=== PATIENT | female | born 1950 | race Caucasian/White ===

== ENCOUNTER 2018-04-14 15:17 | Inpatient (IN) | payer MEDICARE ==
[2018-04-14 15:38] LABS: #Eosinphils 0.1 thou/uL (0.0-0.7); #Lymphocytes 1.5 thou/uL (1.20-3.40); #Monocytes 0.5 thou/uL (0.11-0.59); #Neutrophils 5.2 thou/uL (1.40-6.50); %Basophils 0.3 % (0.0-1.0); %Eosinophils 0.9 % (0.0-10.0); %Monocytes 6.2 % (0.0-10.0); %Neutrophils 71.7 % (42.0-75.0); Hemoglobin 14.9 g/dL (12.0-16.0); Mean Corpuscular HGB CONC 34.5 g/dL (32.0-36.0); Mean Corpuscular Hemoglobin 28.6 pg (27.0-31.0); Mean Corpuscular Volume 82.8 fL (78.0-98.0); Mean Platelet Volume 6.7 fL (7.4-10.4); Platelet Count 169 thou/uL (130-400); RBC Distribution Width 12.6 % (11.5-14.5); Red Blood Cell (RBC) Count 5.23 mill/uL (4.20-5.40); White Blood Cell (WBC) Count 7.3 thou/uL (4.8-10.8)
--- NOTE | 2018-04-14 15:48 | RAD ---
AP VIEW OF THE CHEST: 04/14/18 INDICATION: Mid sternal chest pain. COMPARISON: Prior exam dated 11/01/10. FINDINGS: There is now moderate cardiomegaly with mild to moderate pulmonary vascular congestion. No pleural ef fusion, pneumothorax is evident. No acute osseous abnormality is evident. IMPRESSION: Worsening moderate cardiomegaly with moderate pulmonary vascular congestion. Recommend correlation f or CHF. POS: [facility]
[2018-04-14 16:00] LABS: ALT (SGPT) 11 U/L (8-55); AST (SGOT) 12 U/L (5-34); Albumin 4.4 g/dL (3.4-4.8); Alkaline Phosphatase 122 U/L (40-150); Anion Gap 15 mmol/L (10-20); BUN (Urea Nitrogen) 16 mg/dL (9.8-20.1); Bilirubin, Total 0.6 mg/dL (0.2-1.2); CK (CPK) 44 U/L (29-168); Calc. Creatinine Clearance 0 mL/min (70-130); Calcium 9.7 mg/dL (7.8-10.44); Carbon Dioxide 25 mmol/L (23-31); Chloride 103 mmol/L (98-107); Estimated GFR-MDRD 55; Globulin 2.8 g/dL (2.4-3.5); Glucose 346 mg/dL (80-115); Lipase 25 U/L (8-78); Potassium 3.7 mmol/L (3.5-5.1); Protein, Total 7.2 g/dL (6.0-8.3); Sodium 139 mmol/L (136-145)
[2018-04-14 16:04] LABS: CKMB 0.8 ng/mL (0-6.6); Troponin I Less than 0.010 ng/mL (< 0.028)
[2018-04-14] MEDS ORDERED: Nitroglycerin 2% Ointment 1 INCH/1 GM Packet ONE (16:53)
--- NOTE | 2018-04-14 17:38 | PDOC.FPRHP ---
- History of Present Illness Chief Complaint: Chest Pressure History of Present Illness: 67 yo W F with hx DM, HTN, HLD, hypothyroidism presents with chest pressure beginning last night while she was sitting watching TV, lasting 1 hr. She went to sleep, woke up at 6 AM to go the bathroom and had pressure again, she took symbicort and the pressure resolved in about 5 minutes. She went to work and noticed while she would sit she would get the pressure. Exercise/walking did not make the pressure worse. Pressure/pain does not radiate to back, neck, or arm. After work, she noticed the pressure. She decided to go to urgent care, where an EKG was taken which showed Left axis deviation, sinus rhythm. She received 4 aspirin and was sent here. She reports having a stress test with her PCP Dr. Cheema 2 yrs prior that was normal. She says she had similar chest pressure 6 mos ago that went away on its own. She also recently had a coworker suddenly on March, and has been preparing/working on services for her friend for the past few days, including today. She says that she does not think she is usually anxious (she describes herself as laid back), but also admits to feeling pretty anxious because of her friend. Upon admission to the ED, her BP was 184/62. After being admitted, her systolic pressure jumped up to 244 and she was given hydralazine and labetolol. - Allergies/Adverse Reactions Allergies Allergy/AdvReac Type Severity Reaction Status Date / Time No Known Allergies Allergy Verified 04/14/18 19:25 - History PMHx: DM, HTN, HLD, thyroid disease PSHx: Hemorrhoidectomy, hysterectomy, appendectomy, tonsillectomy FHx: adopted, unknown Social: No T/D/A. with 2 grown children. No ill contacts. - Review of Systems General: denies: fever/chills, weight/appetite/sleep changes, night sweats, fatigue Eyes: denies: vision changes Respiratory: reports: shortness of breath. denies: cough, congestion Cardiovascular: reports: chest pain. denies: palpitation, edema Gastrointestinal: reports: diarrhea, constipation (alternating diarrhea and constipation, chronic). denies: nausea, vomiting, abdominal pain, GI bleeding Genitourinary: denies: incontinence, dysuria Skin: denies: rashes Neurological: denies: numbness, syncope, weakness Psychological: denies: anxiety, depression - Vital signs BP: [] HR: [] RR: [] Tmax: [] Pox: []% on [] Wt: [] - Physical Exam Constitutional: awake, alert and oriented, well developed, other (Seems anxious on Exam) HEENT: normocephalic and atraumatic, PERRLA, EOMI, grossly normal hearing, MMM, oropharynx clear Neck: supple, no LAD Chest: no-tender to palpation Heart: RRR, normal S1/S2, no murmurs/rubs/gallops, pulses present Lungs: CTAB, no respiratory distress, good air movement Abdomen: soft, non-tender, bowel sounds present Skin: no rash/lesions, good turgor, capillary refill <2 seconds Psychiatric: normal mood and affect, good judgment and insight, intact recent and remote memory FMR H&P: Results - Labs Result Diagrams: 04/14/18 15:28 04/14/18 15:28 Lab results: WBC 7.3 thou/uL (4.8-10.8) 04/14/18 15: Hgb 14.9 g/dL (12.0-16.0) 04/14/18 15: Hct 43.3 % (36.0-47.0) 04/14/18 15: MCV 82.8 fL (78.0-98.0) 04/14/18 15:28 Plt Count 169 thou/uL (130-400) 04/14/18 15: Neutrophils % 71.7 % (42.0-75.0) 04/14/18 15:28 Sodium 139 mmol/L (136-145) 04/14/18 15:28 Potassium 3.7 mmol/L (3.5-5.1) 04/14/18 15: Chloride 103 mmol/L (98-107) 04/14/18 15: Carbon Dioxide 25 mmol/L (23-31) 04/14/18 15:28 BUN 16 mg/dL (9.8-20.1) 04/14/18 15: Creatinine 1.00 mg/dL (0.6-1.1) 04/14/18 15:28 Glucose 346 mg/dL (80-115) H 04/14/18 15:28 Calcium 9.7 mg/dL (7.8-10.44) 04/14/18 15:28 Total Bilirubin 0.6 mg/dL (0.2-1.2) 04/14/18 15:28 AST 12 U/L (5-34) 04/14/18 15:28 ALT 11 U/L (8-55) 04/14/18 15:28 Alkaline Phosphatase 122 U/L (40-150) 04/14/18 15:28 Creatine Kinase 44 U/L (29-168) 04/14/18 15:28 CK-MB (CK-2) 0.8 ng/mL (0-6.6) 04/14/18 15:28 B-Natriuretic Peptide 65.4 pg/mL (0-100) 04/14/18 15:28 Serum Total Protein 7.2 g/dL (6.0-8.3) 04/14/18 15:28 Albumin 4.4 g/dL (3.4-4.8) 04/14/18 15:28 Lipase 25 U/L (8-78) 04/14/18 15:28 - EKG Interpretation EKG: Left axis deviation, NSR FMR H&P: A/P - Problem List (1) T2DM (type 2 diabetes mellitus) Current Visit: Yes Status: Chronic (2) HTN (hypertension) Current Visit: Yes Status: Chronic Code(s): I10 - ESSENTIAL (PRIMARY) HYPERTENSION (3) HLD (hyperlipidemia) Current Visit: Yes Status: Chronic Code(s): E78.5 - HYPERLIPIDEMIA, UNSPECIFIED (4) Hypothyroid Current Visit: Yes Status: Chronic Code(s): E03.9 - HYPOTHYROIDISM, UNSPECIFIED (5) Hypertensive urgency Current Visit: Yes Status: Acute Code(s): I16.0 - HYPERTENSIVE URGENCY (6) Chest pressure Current Visit: Yes Status: Acute Code(s): R07.89 - OTHER CHEST PAIN - Plan Atypical Chest pain/pressure, likely 2/2 to hyperthyroid vs HTN urgency vs adrenal etiology: Substernal chest pressure, non-exertional. Possibly improved with nitro. Trop negx1 and CKMB neg. EKG shows LAD, otherwise normal. I do not think that her chest pain is from cardiac etiology at this time. Admit to tele obs, control her pressures overnight. Stress test in the AM. -Continue home aspirin 81 mg HTN Urgency: Systolic up to 244 -HTN seems to correlate with her chest pressure. Control pressure with labetolol and hydralazine PRN. Restart home medications after being med- reconciled. -continue home lisinopril HLD: -Continue home niacin. -Continue home Zocor T2DM: -Glucose in 300s upon entrance. -Continue Actos, Lantus, Onglyza, Amaryl Hypothyroid: -TSH -Hold home synthroid until TSH results Code status: full code FMR H&P: Upper Level - Pertinent history 67 yo female here for chest pressure. PMH of HTN, HLD, DMII, hypothyroid, obesity. She reports having mid-sternal chest pressure this morning that woke her up from sleep, lasted about an hour and resolved on its own. No radiation or neck/arm numbness. She woke again from sleep around 06:00 with the same chest pressure which resolved with symbicort. At work she did not have any chest pressure while actively walking, and it only returned after sitting. She is a patient of Dr. Cheema, had a negative stress test in 2016. Reports she does not have asthma or COPD, but will sometimes get symbicort for respiratory symptoms such as URI or seasonal allergies. Endorses occasional diarrhea/ constipation that is not associated with current episodes. Denies VIZCARRA, SOB, N/V. - Pertinent findings Gen: NAD Resp: CTAb CARD: RRR, normal S1, S2 Abd: NBS x 4, NT, ND Ext: pulses symmetric bilateral, no edema Trpos: <0.010 x 1 BNP: 65 CXR: worsening moderate cardiomegaly with moderate pulmonary vascular congestion EKG: no ST segment changes - Plan Date/Time: 04/14/18 4099 Jose Nieto DO, have evaluated this patient and agree with findings/plan as outlined by campus recruiting internship resident. Pertinent changes/additions are listed here. Atypical chest pain r/o ACS -HEART score 4 due to age and comorbities - will do NM stress test tomorrow morning; NPO at midnight, hold B blockers HTN -restart home meds -labetolol, hydralazine prn DMII -continue home meds -monitor for the need for mild SSI Hypothyroid -check TSH -restart home meds Anxiety -will screen for anxiety tomorrow Attending Addendum - Attending Addendum Date/Time: 04/14/181834 I personally evaluated the patient in the Emergency Department and discussed the management with Dr. Perri Vo just prior to admission to the floor. I agree with the History, Examination, Assessment and Plan documented above with any addition or exceptions noted below. DDD: 67 y/o female presented to urgent care this afternoon after having several episodes of mid sternal chest pressure the first of which was last night and only lasted 5 minutes. Today at urgent care she was given 4 aspirin and sent to the ED to be evaluated. She denies actual pain, numbness tingling, dyspnea, nausea or radiation of the pressure into the jaw, neck, back , arms or abdomen. She also denies heartburn or indigestion except on rare occasions. 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 Note she was initially hypertensive in the E.D. brought down with meds. For the rest of the PMH, SH, FH (she's adopted), and ROS see Dr. Perri Vo's note. Exam: Alert, pleasant, cooperative moddertely obese female in the E.D. in NAD. HEENT: WNL Neck: supple no adenopathy or thyromegaly Lungs: CTA, Cor: RRR, no murmur. Abdomen: soft protruberant, non-tender, no organomegaly or masses. Ext: No cyanosis, clubbing or pallor. 1+ edema bilat. lower legs (she states is normal). A: Atypical Chest pressure, but with risk factors for CAD. Possibly related to elevated episodes or MSK chest discomfort from recent increased lifting. HTN urgency resolved HLD DM-2 Hypothyroidism. Obesity P: Telemetry, Nuclear stress tesing in [facility]
[2018-04-14] MEDS ORDERED: Calcium Carbonate 500 MG ChewTAB PO PRN (17:45)
[2018-04-14] MEDS ORDERED: Labetalol HCl 100 MG/20 ML VIAL SLOW IVP PRN (18:25)
[2018-04-14] MEDS ORDERED: Enoxaparin Sodium 40 MG/0.4 ML SYRINGE SC SCH (18:30)
[2018-04-14] MEDS: hydrALAZINE 20 MG/ML VIAL SLOW IVP PRN (18:42)
[2018-04-14 18:48] VITALS: BMI 39.2
[2018-04-14] MEDS ORDERED: Lidocaine 2% Viscous Solution 20 ML, Aluminum & Magnesium Hydroxide 30 ML, Donnatal Eli... SSW SCH (21:45)
[2018-04-14 22:04] LABS: Troponin I Less than 0.010 ng/mL (< 0.028)
[2018-04-14] MEDS: Lorazepam 2 MG/ML VIAL SLOW IVP PRN (22:20)
[2018-04-15 01:20] LABS: Troponin I Less than 0.010 ng/mL (< 0.028)
[2018-04-15] MEDS ORDERED: Lorazepam 2 MG/ML VIAL SLOW IVP SCH (02:29)
--- NOTE | 2018-04-15 05:43 | PDOC.FM ---
- Subjective Subjective: 67 WF here for chest pain r/o. Did not sleep well overnight due to uncomfortable bed. Received Ativan 1x last night which helped relieve her chest pain. Feels well this morning, denied pain. NPO for Stress test this AM. - Objective Vital Signs & Weight: Vital Signs (12 hours) Temp Pulse Resp BP BP BP Pulse Ox 04/15/18 03:40 98.1 F 81 16 148/65 H 94 L 04/14/18 21:35 94 L 04/14/18 21:28 149/66 H 04/14/18 20:09 74 182/81 H 04/14/18 20:00 98.6 F 74 18 04/14/18 19:30 172/75 H 04/14/18 19:18 75 189/79 H 04/14/18 18:42 244/105 H 04/14/18 17:49 98.6 F 72 18 224/104 H Weight Weight 103.691 kg Result Diagrams: 04/14/18 15:28 04/14/18 15:28 <Estefani Vo - Last Filed: 04/15/18 07:35> - Objective Vital Signs & Weight: Vital Signs (12 hours) Temp Pulse Resp BP BP Pulse Ox 04/15/18 13:18 97.4 F L 86 16 187/88 H 96 04/15/18 08:00 97.9 F 75 16 04/15/18 07:33 97.9 F 75 16 147/63 H 93 L 04/15/18 03:40 98.1 F 81 16 148/65 H 94 L Weight Weight 103.691 kg I&O: 04/14/18 04/15/18 04/16/18 06:59 06:59 06:59 Intake Total 240 Balance 240 Result Diagrams: 04/14/18 15:28 04/14/18 15:28 <Kedar Couch - Last Filed: 04/15/18 15:27> Phys Exam - Physical Examination Constitutional: NAD HEENT: moist MMs Neck: supple (, thyroid normal size and NTTP, normal consistency) Respiratory: no wheezing, no rales, no rhonchi, clear to auscultation bilateral Cardiovascular: RRR 2/6 systolic murmur Gastrointestinal: soft, non-tender Musculoskeletal: no edema, pulses present Neurological: moves all 4 limbs Psychiatric: normal affect, A&O x 3 Skin: normal turgor, cap refill <2 seconds <Estefani Vo - Last Filed: 04/15/18 07:35> Dx/Plan (1) T2DM (type 2 diabetes mellitus) Status: Chronic (2) HTN (hypertension) Code(s): I10 - ESSENTIAL (PRIMARY) HYPERTENSION Status: Chronic (3) HLD (hyperlipidemia) Code(s): E78.5 - HYPERLIPIDEMIA, UNSPECIFIED Status: Chronic (4) Hypothyroid Code(s): E03.9 - HYPOTHYROIDISM, UNSPECIFIED Status: Chronic (5) Hypertensive urgency Code(s): I16.0 - HYPERTENSIVE URGENCY Status: Acute (6) Chest pressure Code(s): R07.89 - OTHER CHEST PAIN Status: Acute - Plan Plan: Atypical Chest pain/pressure, likely 2/2 to hyperthyroid vs HTN urgency vs adrenal etiology: Substernal chest pressure, non-exertional. Possibly improved with nitro. Trop negx1 and CKMB neg. EKG shows LAD, otherwise normal. I do not think that her chest pain is from cardiac etiology at this time. Admit to tele obs, control her pressures overnight. Stress test in the AM. -Continue home aspirin 81 mg -Hold B dieudonne until after stress test today HTN Urgency(Resolved): Systolic up to 244, now 148/65 -HTN seems to correlate with her chest pressure. Control pressure with hydralazine PRN (hold labetolol for now). -continue home lisinopril HLD: -Continue home niacin. -Continue home Zocor T2DM: -Glucose in 300s upon entrance. Improved to 135. -Continue Actos, Lantus, Onglyza, Amaryl Hypothyroid: -TSH- LOW at 0.2261. T4 pending. Pt state she had labs drawn at a recent office visit. -Hold home synthroid Code status: full code <Estefani Vo - Last Filed: 04/15/18 07:35> (1) T2DM (type 2 diabetes mellitus) Status: Chronic (2) HTN (hypertension) Code(s): I10 - ESSENTIAL (PRIMARY) HYPERTENSION Status: Chronic (3) HLD (hyperlipidemia) Code(s): E78.5 - HYPERLIPIDEMIA, UNSPECIFIED Status: Chronic (4) Hypothyroid Code(s): E03.9 - HYPOTHYROIDISM, UNSPECIFIED Status: Chronic (5) Hypertensive urgency Code(s): I16.0 - HYPERTENSIVE URGENCY Status: Acute (6) Chest pressure Code(s): R07.89 - OTHER CHEST PAIN Status: Acute <Kedar Couch - Last Filed: 04/15/18 15:27> Attending Addendum - Attending Addendum Date/Time: 04/15/18 1521 I personally evaluated the patient and discussed the management with Dr. Leandra Malagon. I agree with the History, Examination, Assessment and Plan documented above with any addition or exceptions noted below. We visited patient after her nuclear stress test to inform her the test (both scan and ECG) was positive for ischemia in the inferior and anterolateral heart implying she has likely one or more heart arteries with blockage. There [address] depression in II and V6 The next step is to consult cardiology to evaluate and make recommendations and consider coronary arteriogram. We answered her questions and deferred some answers to the cardiology team. She will remain in hospital for consult. [facility] <Kedar Couch - Last Filed: 04/15/18 15:27>
[2018-04-15] MEDS: metFORMIN 500 MG TAB PO SCH ×2 (08:29→17:08)
[2018-04-15] MEDS: Glimepiride 4 MG TAB PO SCH ×2 (08:29→17:08)
[2018-04-15] MEDS ORDERED: Levothyroxine Sodium 50 MCG TAB PO SCH (09:00)
[2018-04-15] MEDS ORDERED: INSULIN GLARGINE HUM REC ANLOG 30 UNIT SC SCH (09:00)
[2018-04-15] MEDS ORDERED: Regadenoson 0.4 MG/5 ML SYRINGE ONE (10:39)
[2018-04-15] MEDS ORDERED: Enoxaparin Sodium 100 MG/ML SYRINGE SC SCH (11:30)
[2018-04-15] MEDS ORDERED: Nitroglycerin 2% Ointment 1 INCH/1 GM Packet TOP SCH (11:45)
[2018-04-15] MEDS: Aspirin 325 MG TAB PO SCH (13:33)
[2018-04-15] MEDS: Alogliptin 25 MG TAB PO SCH (13:33)
[2018-04-15] MEDS: Insulin Glargine 30 UNITS in Pre-Filled Syringe 1 EACH SC SCH (13:33)
[2018-04-15] MEDS: Pioglitazone HCl 45 MG TAB PO SCH (13:33)
[2018-04-15] MEDS: Lisinopril 20 MG TAB PO SCH (13:34)
--- NOTE | 2018-04-15 14:52 | NM ---
MYOCARDIAL PERFUSION EVALUATION: INDICATION: Chest pain, diabetes, hyperlipidemia, and hypertension. RADIOPHARMACEUTICAL: 32.6 mCi Technetium 99m sestamibi IV with stress and 9.5 mCi Technetium 99m sestamibi IV with rest. PHYSIOLOGIC DATA: The patient achieved 60% of the maximal age-predicted heart rate utilizing a LexiScan stress test pro tocol. Please see the stress test report for details concerning the stress/rest report. FINDINGS: There is a moderate-sized region of moderate reduced activity involving the mid to distal anterior se ptal wall as well as the mid to distal anterior wall and apex that improves with rest. There was mil d dyskinesia involving the anterior wall of the left ventricle on the gated images. The LVEF is giovanni ured at 63%. IMPRESSION: 1. Positive myocardial perfusion evaluation with areas of reduced activity seen on the stress examin ation involving the mid to apical anterior wall and mid to apical anterior septal wall. . Overall f indings are suspicious for reversible ischemia. 2. Mild dyskinesia of the distal anterior wall on the gated images. 3. Left ventricular ejection fraction of 63%. Findings were called to Dr. Shani Malagon at 2:08 p.m. on 04/15/18. CODE CR POS: [facility]
[2018-04-15] MEDS ORDERED: Nitroglycerin 4.9 GM Bottle ONE (16:28)
[2018-04-15] MEDS ORDERED: Diazepam 5 MG TAB PO SCH (18:45)
[2018-04-15] MEDS ORDERED: Communication Order-Pharmacy FS SCH (18:45)
[2018-04-15] MEDS ORDERED: Amlodipine 5 MG TAB PO SCH (18:45)
--- NOTE | 2018-04-15 23:11 | CON ---
DATE OF CONSULTATION: 04/15/2018 REASON FOR CONSULTATION: Unstable angina. HISTORY OF PRESENT ILLNESS: Ms. Gabby Mills is a 67-year-old woman with diabetes, she thinks for a t least 15 years. She had an episode of chest discomfort about 6 weeks ago that was relatively mild, it went away, substernal. She had another episode of chest discomfort, severe, yesterday and came t o the emergency room. She was brought to the emergency room for this pain, which as mentioned felt l fish a pressure. The patient underwent stress testing today, which was very abnormal, that will be outlined below. PAST MEDICAL HISTORY: 1. Diabetes for about 15 years. She has been on insulin the last few years. 2. Hypertension. 3. Hyperlipidemia. 4. Thyroid disease. PAST SURGICAL HISTORY: 1. Hemorrhoidectomy. 2. Hysterectomy. 3. Appendectomy. 4. Tonsillectomy. REVIEW OF SYSTEMS: Constitutional: No significant weight gain or loss. Vision: No changes. Heari ng: No changes. Pulmonary: No cough or wheezing. Gastrointestinal: No nausea, vomiting, diarrhea . Skin: No rashes. Neurologic: No unilateral weakness or numbness. Psychiatric: She does report some intermittent feelings of anxiety. No depression. FAMILY HISTORY: Noncontributory. PHYSICAL EXAMINATION: GENERAL: A pleasant patient in no distress. VITAL SIGNS: Blood pressure 158/72; pulse 80, regular. HEENT: Eyes, sclerae nonicteric. Mouth, mucous membranes are moist. NECK: Supple. No lymphadenopathy. LUNGS: Clear. No wheezing, rales, or rhonchi. CARDIAC: Normal S1, normal S2. No murmur, rub, or gallop. ABDOMEN: Soft, nontender. No hepatosplenomegaly. EXTREMITIES: Warm, dry. No clubbing. No cyanosis or edema. Good dorsalis pedis and posterior tibi al pulses bilaterally. LABORATORY DATA: Cardiac enzymes were negative. Glucose was 301. I do not see a recent lipid. Stress testing was done. The patient had severe substernal chest pain after Lexiscan administration. She had to be given 75 mg of aminophylline and 3 nitroglycerin and the stress test showed anterior ischemia. ASSESSMENT: 1. Unstable angina. 2. Diabetes. Does not appear to be well controlled. 3. Hyperlipidemia, according to the patient. 4. Hypertension. PLAN: 1. She got one dose of Lovenox. 2. We will add amlodipine. 3. Proceed to cardiac catheterization tomorrow. Risks including stroke, heart attack, iodine allerg y, loss of blood supply to leg or kidney, stent thrombosis, stent restenosis were all discussed. She understands and wished to proceed.
[2018-04-16] MEDS: hydrALAZINE 20 MG/ML VIAL SLOW IVP PRN (00:02)
[2018-04-16] MEDS: Lorazepam 2 MG/ML VIAL SLOW IVP PRN ×2 (01:04→20:45)
[2018-04-16] MEDS ORDERED: Lidocaine 2% Viscous Solution 20 ML, Aluminum & Magnesium Hydroxide 30 ML, Donnatal Eli... SSW SCH (02:00)
[2018-04-16] MEDS: Aspirin 325 MG TAB PO SCH (06:11)
[2018-04-16] MEDS: Sodium Chloride 0.9% 1,000 ML IV SCH (06:11)
[2018-04-16] MEDS: Lisinopril 20 MG TAB PO SCH (06:11)
[2018-04-16] MEDS: Nitroglycerin 2% Ointment 1 INCH/1 GM Packet TOP SCH ×3 (06:12→19:27)
[2018-04-16] MEDS ORDERED: Amlodipine 5 MG TAB PO SCH ×2 (09:00→21:00)
[2018-04-16] MEDS: Glimepiride 4 MG TAB PO SCH ×2 (10:06→19:27)
[2018-04-16] MEDS: metFORMIN 500 MG TAB PO SCH ×2 (10:06→19:27)
[2018-04-16] MEDS: Insulin Glargine 30 UNITS in Pre-Filled Syringe 1 EACH SC SCH (10:07)
[2018-04-16] MEDS: Alogliptin 25 MG TAB PO SCH (10:07)
[2018-04-16] MEDS: Pioglitazone HCl 45 MG TAB PO SCH (10:07)
--- NOTE | 2018-04-16 10:24 | PDOC.EVN ---
Event Note - Event Note Event Note: History, Physical Exam, and Plan discussed with resident Dr. Quintanilla. 67F admitted for atypical chest pain. Multiple comorbidities with a Heart score of 4. NM stress test shows possible reversible ischemia iwth inferiolateral dyskinesia. Ejection fraction of 63%. Patient has been hypertensive overnight, but pressures have been controlled with hydralazine and Ativan PRN. Cardiology with perform cath today. We will f/u results and recommendations.
[2018-04-16] MEDS ORDERED: Lidocaine 1% (PF) 30 ML VIAL ONE (10:35)
[2018-04-16] MEDS ORDERED: Midazolam HCl 2 mg/2 ml Vial ONE ×2 (10:44→11:20)
[2018-04-16] MEDS ORDERED: Fentanyl 100 MCG/2 ML VIAL ONE (10:44)
--- NOTE | 2018-04-16 10:55 | PDOC.FM ---
- Subjective Subjective: Nursing states that she had some elevated BPs overnight, systolic in the 180s. She was given her home meds of amlodipine and lisinopril which did not effect her BP. She was given hydralzine which lowered her BP and also cause some chest discomfort and SOB that resolved within an hour of giving the medication. Her labetalol was held due to the cath today as well as her lower pulses, in the 60s. Pt. states that she did well overnight. She describes feeing anxious about her cardiac cath later this morning. She currently does not complain of chest pain, SOB, or other symptoms. - Objective MAR Reviewed: Yes Vital Signs & Weight: Vital Signs (12 hours) Temp Pulse Resp BP Pulse Ox 04/16/18 07:48 98.1 F 75 16 135/65 94 L 04/16/18 04:15 98.0 F 74 16 149/67 H 96 04/16/18 00:51 74 157/70 H 04/15/18 23:33 98.3 F 74 18 183/84 H 99 Weight Weight 102.149 kg I&O: 04/15/18 04/16/18 04/17/18 06:59 06:59 06:59 Intake Total 240 1160 Output Total 800 Balance 240 360 Result Diagrams: 04/14/18 15:28 04/14/18 15:28 Phys Exam - Physical Examination Constitutional: NAD HEENT: PERRLA, moist MMs Respiratory: no wheezing, clear to auscultation bilateral Cardiovascular: RRR, no significant murmur Gastrointestinal: soft, non-tender, positive bowel sounds Musculoskeletal: pulses present, edema present (mild non-pitting) Neurological: normal sensation, moves all 4 limbs Psychiatric: normal affect, A&O x 3 Skin: no rash, cap refill <2 seconds Dx/Plan (1) Chest pressure Code(s): R07.89 - OTHER CHEST PAIN Status: Acute (2) Hypertensive urgency Code(s): I16.0 - HYPERTENSIVE URGENCY Status: Acute (3) Anxiety Code(s): F41.9 - ANXIETY DISORDER, UNSPECIFIED Status: Acute (4) HLD (hyperlipidemia) Code(s): E78.5 - HYPERLIPIDEMIA, UNSPECIFIED Status: Chronic (5) HTN (hypertension) Code(s): I10 - ESSENTIAL (PRIMARY) HYPERTENSION Status: Chronic (6) Hypothyroid Code(s): E03.9 - HYPOTHYROIDISM, UNSPECIFIED Status: Chronic (7) T2DM (type 2 diabetes mellitus) Status: Chronic - Plan Plan: This is a 67 yo W F with a PMH of DMII, HTN, HLD, and hypothyroidism. Chest pressure 2/2 ischemia vs. HTN -Pt. is having heart cath this morning, will check on results -Continue home aspirin -Continue Tele monitoring Hypertensive urgency -Responds to hydralzine -Pt. has nitro paste on board -Continue home medications Anxiety -PRN ativan -Education on procedures and what to expect going for cath Hyperlipidemia -Continue home niacin and zocor Hypothyroidism -pt.s synthroid was held due to low TSH, will restart on a lower dose DMII - We are adding a SSI due to current blood glucose trend -She is continuing her home meds -Pharmacy is reconciling her DM meds to see if there is another option, she is currently on 5 medications. Will await their recs.
[2018-04-16] MEDS ORDERED: Heparin 10,000 UNITS/1 ML VIAL ONE ×2 (11:10→11:23)
[2018-04-16] MEDS ORDERED: Nitroglycerin 100MG/250ML BOT 250 ML ONE (11:11)
[2018-04-16] MEDS ORDERED: Ondansetron HCl/PF 4 MG/2 ML Vial ONE (11:20)
[2018-04-16] MEDS ORDERED: Dextrose 50% Abboject 50 ML SYRINGE SLOW IVP PRN ×2 (11:21→12:38)
[2018-04-16] MEDS ORDERED: HumaLOG 300 UNITS/3 ML VIAL SC PRN (11:21)
[2018-04-16] MEDS ORDERED: Dextrose 5% in Water 1,000 ML IV PRN ×2 (11:21→12:38)
[2018-04-16] MEDS ORDERED: TICAGRELOR 90 MG TABLET ONE (11:45)
[2018-04-16] MEDS ORDERED: Bivalirudin 250 MG VIAL ONE ×2 (12:00→13:04)
[2018-04-16] MEDS ORDERED: TICAGRELOR 90 MG TABLET PO SCH (12:30)
[2018-04-16] MEDS ORDERED: Insulin Regular 300 UNITS/3 ML VIAL SC PRN (12:38)
--- NOTE | 2018-04-16 17:13 | EKG ---
Test Reason : POST STENT-LAD Blood Pressure : / mmHG Vent. Rate : 061 BPM Atrial Rate : 061 BPM P-R Int : 160 ms QRS Dur : 104 ms QT Int : 434 ms P-R-T Axes : 046 -34 034 degrees QTc Int : 436 ms Sinus rhythm with marked sinus arrhythmia Left axis deviation T wave abnormality, consider lateral ischemia Abnormal ECG When compared with ECG of 14-APR-2018 21:48, (Unconfirmed) T wave inversion now evident in Anterior leads Confirmed by SANGEETA FERRER, DR. Faustin ([id number]) on 04/16/2018 5:13:08 PM Referred By: GETACHEW Confirmed By:DR. Roxie RUTHERFORD MD
[2018-04-16] MEDS ORDERED: Iopamidol 370 76% 50 ML VIAL FS ONE (19:21)
[2018-04-16] MEDS ORDERED: Iopamidol 370 76% 100 ML VIAL ONE (19:21)
[2018-04-16] MEDS: (Icosapent Ethyl [Vascepa] 1 GM) PO SCH (19:33)
[2018-04-16] MEDS: TICAGRELOR 90 MG TABLET PO SCH (20:49)
[2018-04-17] MEDS: Nitroglycerin 2% Ointment 1 INCH/1 GM Packet TOP SCH ×3 (00:41→11:04)
[2018-04-17] MEDS: Sodium Chloride 0.9% 1,000 ML IV SCH ×3 (02:11→11:07)
[2018-04-17 05:12] LABS: #Eosinphils 0.1 thou/uL (0.0-0.7); #Monocytes 0.6 thou/uL (0.11-0.59); #Neutrophils 6.6 thou/uL (1.40-6.50); %Basophils 0.2 % (0.0-1.0); %Eosinophils 1.4 % (0.0-10.0); %Lymphocytes 11.5 % (21.0-51.0); %Monocytes 6.9 % (0.0-10.0); %Neutrophils 80.1 % (42.0-75.0); Hemoglobin 12.9 g/dL (12.0-16.0); Mean Corpuscular HGB CONC 33.5 g/dL (32.0-36.0); Mean Corpuscular Hemoglobin 28.5 pg (27.0-31.0); Mean Corpuscular Volume 85.1 fL (78.0-98.0); Mean Platelet Volume 6.5 fL (7.4-10.4); Platelet Count 153 thou/uL (130-400); RBC Distribution Width 12.6 % (11.5-14.5); Red Blood Cell (RBC) Count 4.55 mill/uL (4.20-5.40); White Blood Cell (WBC) Count 8.2 thou/uL (4.8-10.8)
--- NOTE | 2018-04-17 05:20 | PDOC.FM ---
- Subjective Subjective: Pt. and nurse states she did well overnight. Tele reveals NSR all night. Pt. states that she had some pain over cath insertion site and was treated with ice and pressure. Currently, she states she has a headache and mild discomfort from the insertion site. She denies any chest pain, shortness of breath, or palpitations. We discussed the procedure she had done and anatomy. - Objective MAR Reviewed: Yes Vital Signs & Weight: Vital Signs (12 hours) Temp Pulse Resp BP BP BP Pulse Ox 04/17/18 04:00 98.2 F 68 18 138/65 95 04/16/18 21:40 98.1 F 69 18 96 04/16/18 20:44 75 153/56 H 04/16/18 20:42 98.1 F 69 18 153/56 H 96 04/16/18 19:41 98.2 F 71 18 187/82 H 96 Weight Weight 102.149 kg I&O: 04/15/18 04/16/18 04/17/18 06:59 06:59 06:59 Intake Total 240 1160 433 Output Total 800 1100 Balance 240 360 -667 Result Diagrams: 04/17/18 04:40 04/17/18 04:40 EKG Reviewed by me: Yes (reviewed post cath EKG report) <Slava Quintanilla - Last Filed: 04/17/18 09:09> - Objective Vital Signs & Weight: Vital Signs (12 hours) Temp Pulse Resp BP Pulse Ox 04/17/18 08:00 98 F 67 16 94 L 04/17/18 07:31 98 F 67 16 134/63 94 L 04/17/18 04:00 98.2 F 68 18 138/65 95 Weight Weight 108.607 kg I&O: 04/16/18 04/17/18 04/18/18 06:59 06:59 06:59 Intake Total 1160 2073 Output Total 800 1900 Balance 360 173 Result Diagrams: 04/17/18 04:40 04/17/18 04:40 <Dhaval Montiel - Last Filed: 04/17/18 10:59> Phys Exam - Physical Examination Constitutional: NAD HEENT: PERRLA, moist MMs Neck: no JVD, full ROM Respiratory: no wheezing, clear to auscultation bilateral Cardiovascular: RRR, no significant murmur, no rub Gastrointestinal: soft, non-tender Musculoskeletal: pulses present, edema present (non-pitting edema) Neurological: non-focal, normal sensation, moves all 4 limbs Psychiatric: normal affect, A&O x 3 Skin: no rash, normal turgor <Slava Quintanilla - Last Filed: 04/17/18 09:09> Dx/Plan (1) Chest pressure Code(s): R07.89 - OTHER CHEST PAIN Status: Acute (2) Hypertensive urgency Code(s): I16.0 - HYPERTENSIVE URGENCY Status: Acute (3) Anxiety Code(s): F41.9 - ANXIETY DISORDER, UNSPECIFIED Status: Acute (4) HLD (hyperlipidemia) Code(s): E78.5 - HYPERLIPIDEMIA, UNSPECIFIED Status: Chronic (5) HTN (hypertension) Code(s): I10 - ESSENTIAL (PRIMARY) HYPERTENSION Status: Chronic (6) Hypothyroid Code(s): E03.9 - HYPOTHYROIDISM, UNSPECIFIED Status: Chronic (7) T2DM (type 2 diabetes mellitus) Status: Chronic - Plan Plan: This is a 67 yo W F with a PMH of DMII, HTN, HLD, and hypotyroidism Chest pressure 2/2 ischemia vs. HTN -Pt. had heart cath yesterday and one stent placed in the LAD -Continue home aspirin -Restart beta dieudonne -Continue tele monitoring Hypertensive urgency -resolved -Restarting beta dieudonne -Continuing home meds Anxiety -PRN ativan Hyperlipidemia -Continue home niacin and zocor Hypothyroidism -Continue 25mcg of synthroid DMII -SSI -Continuing home meds -Checking on pharmacy recs for home meds Code: full Family: none at bedside Prophylaxis: none Disposition: home today barring no change and cardiology recs <Slava Quintanilla - Last Filed: 04/17/18 09:09> Attending Addendum - Attending Addendum Date/Time: 04/17/18 3955 I personally evaluated the patient and discussed the management with Dr. Quintanilla I agree with the History, Examination, Assessment and Plan documented above with any addition or exceptions noted below. 67F on HD #3 for atypical CP. She went for cardiac catheterization yesterday with one drug eluting stent placed in proximal LAD. Vital signs appropriate this morning. laboratory monitor with no abnormalities overnight. She is stable for discharge pending further Cardiology recommendations. <Dhaval Montiel Last Filed: 04/17/18 10:59>
[2018-04-17] MEDS ORDERED: Levothyroxine Sodium 25 MCG TAB PO SCH (06:00)
[2018-04-17 06:16] LABS: ALT (SGPT) 9 U/L (8-55); AST (SGOT) 13 U/L (5-34); Albumin 3.5 g/dL (3.4-4.8); Alkaline Phosphatase 98 U/L (40-150); Anion Gap 14 mmol/L (10-20); BUN (Urea Nitrogen) 10 mg/dL (9.8-20.1); Bilirubin, Total 0.9 mg/dL (0.2-1.2); Calc. Creatinine Clearance 123 mL/min (70-130); Carbon Dioxide 22 mmol/L (23-31); Chloride 108 mmol/L (98-107); Estimated GFR-MDRD 75; Globulin 2.4 g/dL (2.4-3.5); Glucose 175 mg/dL (80-115); Potassium 3.7 mmol/L (3.5-5.1); Protein, Total 5.9 g/dL (6.0-8.3); Sodium 140 mmol/L (136-145)
[2018-04-17] MEDS: Insulin Glargine 30 UNITS in Pre-Filled Syringe 1 EACH SC SCH (07:55)
[2018-04-17] MEDS: Lisinopril 20 MG TAB PO SCH (07:55)
[2018-04-17] MEDS: Glimepiride 4 MG TAB PO SCH ×2 (07:56→16:47)
[2018-04-17] MEDS: TICAGRELOR 90 MG TABLET PO SCH (07:56)
[2018-04-17] MEDS: metFORMIN 500 MG TAB PO SCH ×2 (07:56→16:47)
[2018-04-17] MEDS: Alogliptin 25 MG TAB PO SCH (07:56)
[2018-04-17] MEDS: Pioglitazone HCl 45 MG TAB PO SCH (07:56)
[2018-04-17 11:30] VITALS: TEMP 97.8
--- NOTE | 2018-04-17 12:28 | EKG ---
Test Reason : Blood Pressure : / mmHG Vent. Rate : 073 BPM Atrial Rate : 073 BPM P-R Int : 158 ms QRS Dur : 106 ms QT Int : 414 ms P-R-T Axes : 044 -30 055 degrees QTc Int : 456 ms Normal sinus rhythm Left axis deviation Nonspecific T wave abnormality Abnormal ECG When compared with ECG of 16-APR-2018 13:34, No significant change was found Confirmed by SANGEETA FERRER, SBret ([id number]) on 04/17/2018 12:28:22 PM Referred By: GETACHEW Confirmed By:DR. Roxie RUTHERFORD MD
[2018-04-17 13:40] VITALS: BP 109/53
--- NOTE | 2018-04-17 15:22 | ULT ---
ULTRASOUND PSEUDOANEURYSM COMPRESSION EVALUATION: Date: 04/17/18 COMPARISON: None. HISTORY: Groin pain after a stent placement. FINDINGS: Real-time Briscoe scale with color and spectral analysis of the right groin was performed. There is a he matoma along the right groin without a definite neck reaching to it. This measures approximately 5.0 x 2.0 cm. There is extensive infiltration of the soft tissues with fluid. IMPRESSION: Right groin hematoma without definite pseudoaneurysm. POS: SCARLETT
--- NOTE | 2018-04-17 17:17 | PRG ---
DATE OF SERVICE: 04/17/2018 HISTORY: Ms. Mills is doing okay, just had some groin tenderness today. No chest pain, no shortness of breath. PHYSICAL EXAMINATION: VITAL SIGNS: Blood pressure is 122/56, pulse 68, regular. LUNGS: Clear. CARDIAC: Normal S1, normal S2. EXTREMITIES: Right groin is tender. LABORATORY DATA: Hemoglobin is 12.9. INR is 0.77. As a precaution did an ultrasound of the right groin, I spoke with Dr. Mcrae. Right groin hematoma was seen without definite pseudoaneurysm. There is a hematoma. PLAN: 1. The patient will be released home on aspirin 81 mg a day. 2. Brilinta 90 mg twice daily. 3. Amlodipine 5 mg a day. 4. Lisinopril 20 mg a day. 5. Metoprolol 100 mg a day. 6. Actos. 7. I have asked her to see us in the office in 2-3 weeks.
--- NOTE | 2018-04-18 03:39 | DIS-2 ---
DATE OF ADMISSION: 04/14/2018 DATE OF DISCHARGE: 04/17/2018 RESIDENT: Dr. Slava Quintanilla. ADMITTING ATTENDING: Dr. Kedar Couch. DISCHARGE ATTENDING: Dr. Dhaval Montiel. CONSULTATIONS: Dr. Moncada with cardiology. PROCEDURES: PCI with placement of drug-eluting stent in the proximal left anterior descending coronary artery. Nuclear stress test showed reduced activity during stress in the apical anterior wal and anterior septal wall. LV EF was 63% PRIMARY DIAGNOSIS: Atypical chest pain secondary to ischemia. SECONDARY DIAGNOSES: Diabetes type 2, hypertension, hyperlipidemia, hypothyroidism. DISCHARGE MEDICATIONS: Brilinta 90 mg p.o. b.i.d. DISCONTINUED MEDICATIONS: None. HISTORY OF PRESENT ILLNESS AND HOSPITAL COURSE: This is a 67-year-old female presented to the ED with chest pressure. She had negative troponins and she was worked up with a nuclear stress test that showed ischemia in the inferior and anterior heart indicating blocked arteries. Cardiology was then consulted and she was taken back on the for a coronary arteriogram as well as coronary catheterization. There was 95% occlusion on the proximal LAD, 50% occlusion on the mid RCA. There was a successful PCI with the insertion of a drug-eluting stent on the proximal left anterior descending coronary artery. Patient tolerated the procedure well and denied any chest pain symptoms or shortness of breath and the day following. One thing to note, the patient is on multiple oral hyperglycemic medications and may be worth considering reducing this number and switching to insulin in the outpatient setting.. DISPOSITION: Stable. DISCHARGE INSTRUCTIONS: 1. Location: Home. 2. Diet: Diabetic diet. 3. Activity: As tolerated. 4. Follow up: With painter helper spray as directed and primary care physician in the next 1-2 weeks. JEANCARLOS
--- NOTE | 2018-04-18 12:34 | PQF ---
ANDREA GIL KENNON D MD [id number] CLINICAL DOCUMENTATION CLARIFICATION FORM: POST DISCHARGE DATE: 04/18/2018 ATTN: Dr. Moncada Please exercise your independent, professional judgment in responding to the clarification form. Clinical indicators are provided on the bottom of this form for your review Please check appropriate box(s): [ ] Right groin hematoma is a postoperative complication related to current surgery [ ] Right groin hematoma is not a postoperative complication related to current surgery [ ] Other diagnosis (please specify) [ ] Unable to determine In addition, please specify: Present on Admission (POA): [ ] Yes [ ] No [ ] Unable to determine CLINICAL INDICATORS - SIGNS / SYMPTOMS / LABS Per 04/17 progress note: Ms. Gil is doing okay, just had some groin tenderness today. Right groin hematoma was seen without definite pseudoaneurysm (per right groin ultrasound). There is a hematoma. RISK FACTORS Per cath report: Status post cardiac cath with insertion of drug eluting stent 04/16. TREATMENT: Per 04/17 family medicine PN: Ice and pressure. (This form is maintained as a part of the permanent medical record) 2014 [employer] All Rights Reserved Belinda [email or web address] [phone] JEANCARLOS
--- NOTE | 2018-04-19 12:21 | EKG ---
Test Reason : Blood Pressure : / mmHG Vent. Rate : 073 BPM Atrial Rate : 073 BPM P-R Int : 146 ms QRS Dur : 096 ms QT Int : 410 ms P-R-T Axes : 046 -31 050 degrees QTc Int : 451 ms Normal sinus rhythm Left axis deviation Abnormal ECG Confirmed by EDISON FERRER, ILEANA ([id number]), news editor LEONARDO FLYNN ([id number]) on 04/19/2018 12:21:24 PM Referred By: Confirmed By:ILEANA HOGAN MD
--- NOTE | 2018-04-22 16:59 | EKG ---
Test Reason : STAT Blood Pressure : / mmHG Vent. Rate : 068 BPM Atrial Rate : 068 BPM P-R Int : 164 ms QRS Dur : 106 ms QT Int : 408 ms P-R-T Axes : 049 -40 072 degrees QTc Int : 433 ms Normal sinus rhythm Left axis deviation Nonspecific T wave abnormality Abnormal ECG When compared with ECG of 01-NOV-2010 16:35, Nonspecific T wave abnormality now evident in Lateral leads Confirmed by JANELL JEAN (2) on 04/22/2018 4:59:22 PM Referred By: CAL Confirmed By:JANELL JEAN
--- NOTE | 2018-04-26 14:04 | STRESS ---
Acquisition Time: 2018-04-15 11:00:21 Total Exercise Time: 00:01:00 Test Indications: CHEST PAIN Medications: Protocol: LEXISCAN Max HR: 093 BPM 60% of Pred: 154 BPM Max BP: 144/086 mmHG Max Work Load: 1.0 METS RESTING ECG: NORMAL SINUS RHYTHM AT 72 BPM SYMPTOMS: DYSPNEA (TRANSIENT) NORMAL BLOOD PRESSURE RESPONSE ECTOPY: NONE ECG RESPONSE: SEVERE SUBSTERNAL CHEST PAIN. [address] DEPRESSION IN LEADS II, V6 INTERPRETATION: POSITIVE ECG/AWAIT NUCLEAR IMAGES FOR DEFINITIVE DIAGNOSIS COMMENTS: REQUIRED AMMINOPHYLLINE 100 MG IV AND 3 SUBLINGUAL NITROGLYCERIN Confirmed by DR. Robby CHILEL ([id number]), editorial intern BETTIE ALFARO ([id number]) on 04/26/2018 2:04:13 PM Referred By: Perri PELAYO Confirmed By:DR. Robby CHILEL
== END 2018-04-17 17:43 | disposition home or self-care (01) | DRG 247 ==
LOC: ERS 15:17 → 2SW 17:33 → OBSVTOIN 17:33 → 2NO 04-16 14:56
PROVIDERS: ADMIT Family Medicine; ATTEND Family Medicine
PROC: 027034Z Dilation of Coronary Artery, One Artery with Drug-eluting Intraluminal Device, Percutaneous Approach (ICD-10-PCS; principal; 2018-04-16)
PROC: 4A023N7 Measurement of Cardiac Sampling and Pressure, Left Heart, Percutaneous Approach (ICD-10-PCS; 2018-04-16)
PROC: B2111ZZ Fluoroscopy of Multiple Coronary Arteries using Low Osmolar Contrast (ICD-10-PCS; 2018-04-16)
DX: I25.10 Atherosclerotic heart disease of native coronary artery without angina pectoris (principal); L76.32 Postprocedural hematoma of skin and subcutaneous tissue following other procedure; E11.9 Type 2 diabetes mellitus without complications; I10 Essential (primary) hypertension; E78.5 Hyperlipidemia, unspecified; E03.9 Hypothyroidism, unspecified; I16.0 Hypertensive urgency; E66.9 Obesity, unspecified; Z68.30 Body mass index [BMI] 30.0-30.9, adult; Z79.82 Long term (current) use of aspirin; Z79.4 Long term (current) use of insulin; Z79.899 Other long term (current) drug therapy; Y84.0 Cardiac catheterization as the cause of abnormal reaction of the patient, or of later complication, without mention of misadventure at the time of the procedure; Y92.239 Unspecified place in hospital as the place of occurrence of the external cause
CPT/HCPCS: 36415; 36416; 71045; 76942; 78452; 80053; 82550; 82553; 83690; 83880; 84439; 84443; 84481; 84484; 85025; 85347; 85379; 92928; 93005; 93010; 93017; 93454; 93798; 93976; 94760; 96360; 99152; 99153; A4216; A9500; C1769; C1874; C1887; C9600; J0280; J0360; J0583; J1644; J1650; J2001; J2060; J2250; J2270; J2405; J2785; J3010

== ENCOUNTER 2018-04-19 20:29 | Observation (INO) | payer MEDICARE ==
[2018-04-19] MEDS ORDERED: Nitroglycerin 0.4 MG TAB (25 Tab Bottle) ONE (20:43)
[2018-04-19 20:50] LABS: #Eosinphils 0.1 thou/uL (0.0-0.7); #Lymphocytes 1.8 thou/uL (1.20-3.40); #Monocytes 0.5 thou/uL (0.11-0.59); #Neutrophils 5.4 thou/uL (1.40-6.50); %Basophils 0.1 % (0.0-1.0); %Eosinophils 1.1 % (0.0-10.0); %Lymphocytes 22.6 % (21.0-51.0); %Monocytes 6.9 % (0.0-10.0); %Neutrophils 69.3 % (42.0-75.0); Hemoglobin 13.7 g/dL (12.0-16.0); Mean Corpuscular HGB CONC 35.3 g/dL (32.0-36.0); Mean Corpuscular Volume 84.9 fL (78.0-98.0); Mean Platelet Volume 7.2 fL (7.4-10.4); Platelet Count 199 thou/uL (130-400); RBC Distribution Width 12.6 % (11.5-14.5); Red Blood Cell (RBC) Count 4.58 mill/uL (4.20-5.40); White Blood Cell (WBC) Count 7.8 thou/uL (4.8-10.8)
[2018-04-19 21:09] LABS: ALT (SGPT) 11 U/L (8-55); AST (SGOT) 13 U/L (5-34); Albumin 4.2 g/dL (3.4-4.8); Alkaline Phosphatase 104 U/L (40-150); Anion Gap 15 mmol/L (10-20); BUN (Urea Nitrogen) 19 mg/dL (9.8-20.1); Bilirubin, Total 0.6 mg/dL (0.2-1.2); Calc. Creatinine Clearance 0 mL/min (70-130); Calcium 9.9 mg/dL (7.8-10.44); Carbon Dioxide 26 mmol/L (23-31); Chloride 102 mmol/L (98-107); Estimated GFR-MDRD 51; Globulin 2.8 g/dL (2.4-3.5); Glucose 247 mg/dL (80-115); Potassium 3.9 mmol/L (3.5-5.1); Sodium 139 mmol/L (136-145)
--- NOTE | 2018-04-19 21:10 | RAD ---
CHEST ONE VIEW 04/19/18 HISTORY: Chest pain. COMPARISON: Chest radiographs 04/14/18. FINDINGS: Increased mediastinal fat. No focal air space consolidation, pneumothorax or effusion. Scarring at th e lingula. No acute osseous abnormality. IMPRESSION: No acute intrathoracic abnormality. POS: HOME
[2018-04-19 21:15] LABS: CKMB 0.9 ng/mL (0-6.6); Troponin I 0.013 ng/mL (< 0.028)
[2018-04-19] MEDS ORDERED: Nitroglycerin 2% Ointment 1 INCH/1 GM Packet ONE (21:31)
--- NOTE | 2018-04-19 21:59 | PDOC.FPRHP ---
- History of Present Illness Chief Complaint: Chest pain s/p stent placement History of Present Illness: Ms. Mills presents to the ED today with chest pressure starting at 1500 today. She was discharged from the hospital 2 days ago after having a drug eluding stent placed in her LAD after a positive stress test for similar symptoms. She was discharged to resume home meds with the addition of ticagrelor. After reading that her new medication may interact with some of her old medications she decided not to take it and call her doctor to confirm that it would be ok. Her primary care physician is on vacation so his office staff said they would send him and email. She never heard from the office and so she never took her medicine. The chest pain continues to be non-exertional and not related to any shortness of breath, palpitations, syncope, or weakness. ED Course: She has received 162mg aspirin, .4 mg nitroglycerin, 1in nitro paste. EKG and cardiac biomarkers were within normal limits - Allergies/Adverse Reactions Allergies Allergy/AdvReac Type Severity Reaction Status Date / Time No Known Allergies Allergy Verified 04/14/18 19:25 - Home Medications Medication Instructions Recorded Confirmed Type Dulaglutide [Trulicity] 0.5 mg SC Q7D 04/14/18 04/19/18 History Glimepiride [Amaryl] 8 mg PO DAILY 04/14/18 04/19/18 History Insulin Glargine,Hum.Rec.Anlog 16 units SC QAM 04/14/18 04/19/18 History [Lantus Solostar] Lisinopril 20 mg PO DAILY 04/14/18 04/19/18 History Pioglitazone HCl [Actos] 45 mg PO DAILY 04/14/18 04/19/18 History Saxagliptin HCl [Onglyza] 5 mg PO DAILY 04/14/18 04/19/18 History metFORMIN HCl 500 mg PO BID 04/14/18 04/19/18 History Aspirin [Aspir-Low] 162 mg PO DAILY 04/15/18 04/19/18 History Cholecalciferol (Vitamin D3) 4,000 unit PO DAILY 04/15/18 04/19/18 History [Vitamin D3] LORazepam [Lorazepam] 1 mg PO QPM PRN 04/15/18 04/19/18 History Levothyroxine Sodium 50 mcg PO QAM 04/15/18 04/19/18 History Metoprolol Tartrate [Lopressor] 100 mg PO BID 04/15/18 04/19/18 History Oxybutynin Chloride [Oxybutynin 10 mg PO DAILY 04/15/18 04/19/18 History Chloride ER] Ticagrelor [Brilinta] 90 mg PO BID #60 tab 04/17/18 04/19/18 Rx Amlodipine [Norvasc] 5 mg PO DAILY #30 tab 04/20/18 Rx Icosapent Ethyl [Vascepa] 2 gm PO DAILY 04/20/18 Rx Nitroglycerin [Nitrostat] 0.4 mg SL Q5MIN PRN #30 tab 04/20/18 Rx Rosuvastatin [Crestor] 20 mg PO HS #30 tab 04/20/18 Rx - History PMHx:DMII, HTN, HLD, Hypothyroid PSHx: LAD drug eluding stent place 04/15/18, hysterectomy, appendectomy FHx: not known- adopted Social: no TAD - Review of Systems General: reports: fatigue. denies: fever/chills, weight/appetite/sleep changes Eyes: denies: eye pain, vision changes Respiratory: denies: cough, shortness of breath, exercise intolerance Cardiovascular: reports: chest pain (substernal pressure, non radiating). denies: palpitation, edema, orthopnea Gastrointestinal: denies: nausea, vomiting, diarrhea, constipation, abdominal pain Genitourinary: denies: incontinence, dysuria Skin: denies: rashes, lesions Musculoskeletal: denies: pain, tenderness Neurological: denies: numbness, syncope, weakness Psychological: reports: anxiety (increased recently) - Vital signs BP: [179/55] HR: [67] RR: [16] Tmax: [99.1] Pox: [96]% on [RA] Wt: [104.33 kg ] - Physical Exam Constitutional: NAD, awake, alert and oriented HEENT: normocephalic and atraumatic, grossly normal vision, grossly normal hearing Neck: supple, trachea midline, no LAD Chest: no-tender to palpation, no lesions Heart: RRR, normal S1/S2, no murmurs/rubs/gallops, pulses present, no edema Lungs: CTAB, no respiratory distress, good air movement, no rales/rhonchi, no wheezing Abdomen: soft, non-tender, no masses/distention Musculoskeletal: normal structure, ROM grossly normal Neurological: no focal deficit, normal sensation Skin: no rash/lesions, good turgor Heme/Lymphatic: no unusual bruising or bleeding, no petechia Psychiatric: normal mood and affect FMR H&P: Results - Labs Result Diagrams: 04/19/18 20:40 04/19/18 20:40 Lab results: WBC 7.8 thou/uL (4.8-10.8) 04/19/18 20:40 Hgb 13.7 g/dL (12.0-16.0) 04/19/18 20:40 Hct 38.9 % (36.0-47.0) 04/19/18 20:40 MCV 84.9 fL (78.0-98.0) 04/19/18 20:40 Plt Count 199 thou/uL (130-400) 04/19/18 20:40 Neutrophils % 69.3 % (42.0-75.0) 04/19/18 20:40 Sodium 139 mmol/L (136-145) 04/19/18 20:40 Potassium 3.9 mmol/L (3.5-5.1) 04/19/18 20:40 Chloride 102 mmol/L (98-107) 04/19/18 20:40 Carbon Dioxide 26 mmol/L (23-31) 04/19/18 20:40 BUN 19 mg/dL (9.8-20.1) 04/19/18 20:40 Creatinine 1.08 mg/dL (0.6-1.1) 04/19/18 20:40 Glucose 247 mg/dL (80-115) H 04/19/18 20:40 Calcium 9.9 mg/dL (7.8-10.44) 04/19/18 20:40 Total Bilirubin 0.6 mg/dL (0.2-1.2) 04/19/18 20:40 AST 13 U/L (5-34) 04/19/18 20:40 ALT 11 U/L (8-55) 04/19/18 20:40 Alkaline Phosphatase 104 U/L (40-150) 04/19/18 20:40 CK-MB (CK-2) 0.9 ng/mL (0-6.6) 04/19/18 20:40 Serum Total Protein 7.0 g/dL (6.0-8.3) 04/19/18 20:40 Albumin 4.2 g/dL (3.4-4.8) 04/19/18 20:40 FMR H&P: A/P - Problem List (1) Hypertensive urgency Status: Acute Code(s): I16.0 - HYPERTENSIVE URGENCY (2) Chest pressure Status: Acute Code(s): R07.89 - OTHER CHEST PAIN (3) Anxiety Status: Acute Code(s): F41.9 - ANXIETY DISORDER, UNSPECIFIED (4) HLD (hyperlipidemia) Status: Chronic Code(s): E78.5 - HYPERLIPIDEMIA, UNSPECIFIED (5) HTN (hypertension) Status: Chronic Code(s): I10 - ESSENTIAL (PRIMARY) HYPERTENSION (6) Hypothyroid Status: Chronic Code(s): E03.9 - HYPOTHYROIDISM, UNSPECIFIED (7) T2DM (type 2 diabetes mellitus) Status: Chronic - Plan 1. Hypertensive urgency - monitor on tele obs -PRN hydralizine 20 mg IV Q2 hr for blood pressures over 160/90 2. Chest pressure s/p stent placement 04/15 - monitor on tele obs - trend trop/ckmb with concurrent EKGs - loading dose of brillanta: 180 mg PO x1 given with aspirin 325 mg POx1 - continue brillanta 90 mg PO bid - consult cardiology in AM 3. Anxiety - possible cause of chest pressure - continue home meds 4. HLD - continue home meds 5. HTN - continue home meds - monitor on telemetry 6. Hypothyroid - continue home meds 7. T2DM - continue home meds -moderate sliding scale insulin -accucheck ACHS FMR H&P: Upper Level - Pertinent history 67 yo WF PMH HTN, IDDM, and recently diagnosed 2 vessel CAD s/p LSI placement x1 last week. Presents with chest pressure that began at approximately 1500 on . Patient states pain felt similar to previous chest pressure prior to stent placement but not as severe. She was discharged on 04/16/18 but did not take her brillenta after reading side effects and drug interactions. She called her PCP to verify but had not heard back. She has been compliant with other medications. In the ER she was found to be severely hypertensive with SBP in the 210s. ER: Nitro paste, nitro SL, ASA 162 mg, Labs, EKG, CXR. - Pertinent findings Vitals: BP at time of exam was 200/90. otherwise WNL GEN: NAD CV: RRR, no murmur Pulm: CTA-B EKG: NSR, no ST changes, LVH CXR: Unremarkable Labs: Cardiac enzymes negative - Plan Date/Time: 04/19/182152 I, Chandu Vinson MD, have evaluated this patient and agree with findings/plan as outlined by [employer] certified internetwork expert resident. Pertinent changes/additions are listed here. 1. Hypertensive Urgency: Continue nitro paste, home medications, and will have PRN hydralazine available. Closely monitor on tele. Will adjust antihypertensives as necessary. 2. Typical Chest Pain/Pressure: Likely 2/2 #1 however there is concern for stent restenosis given noncompliance with antiplatelet therapy. Will trend cardiac enzymes and EKG x3. PRN nitro available. Will discuss case with cardiology in the morning. 3. IDDM: Home meds, SSI ACHS checks, 4. CAD s/p LIS placement: See #2 5. Hypothyroid: home meds 6. PPx: lovenox 7. Diet: HH, CC 8. CODE: FULL Dispo: inpatient, tele, >[address] Slade Attending Addendum - Attending Addendum Date/Time: 04/20/182143 I personally evaluated the patient and discussed the management with Dr. Bergeron and Dr. Vinson I agree with the History, Examination, Assessment and Plan documented above with any addition or exceptions noted below. 68 yo female with newly dx CAD s/p LAD stent placement presents for evaluation of chest pressure. Chest pressure is midsternum. Associated with mild SOB. Relieved with nitro. Has not taken DAPT at home since discharge (2 days). LIS placed. Concern for possible small vessel dz on cath. Not completely convienced pressure related to restenosis of stent this soon. Noted to have HTN urgency upon admission and currently. Will treat with IV medications. Possible cause for extra strain and stress to heart with small vessel dz. Trend trops and EKGs. Restart mediations. Consult cards. Monitor closely. Now pain free. Yana
[2018-04-19 23:55] VITALS: BMI 39.2
[2018-04-20] MEDS ORDERED: Lorazepam 1 MG TAB PO PRN (00:17)
[2018-04-20] MEDS ORDERED: HumaLOG 300 UNITS/3 ML VIAL SC PRN (00:19)
[2018-04-20] MEDS ORDERED: Dextrose 5% in Water 1,000 ML IV PRN (00:19)
[2018-04-20] MEDS ORDERED: Dextrose 50% Abboject 50 ML SYRINGE SLOW IVP PRN (00:19)
[2018-04-20] MEDS ORDERED: TICAGRELOR 90 MG TABLET PO SCH ×2 (00:26→09:00)
[2018-04-20] MEDS ORDERED: hydrALAZINE 20 MG/ML VIAL SLOW IVP PRN ×2 (00:26→00:44)
[2018-04-20] MEDS ORDERED: Aspirin 81 mg Enteric Coated Tablet PO SCH ×4 (00:26→09:00)
[2018-04-20] MEDS ORDERED: Ondansetron ODT 4 MG TAB PO PRN (00:26)
[2018-04-20] MEDS ORDERED: Lactated Ringer's 1,000 ML IV SCH (00:26)
[2018-04-20] MEDS: TICAGRELOR 90 MG TABLET PO SCH ×2 (00:56→08:29)
[2018-04-20 01:31] LABS: CKMB 0.7 ng/mL (0-6.6); Troponin I 0.019 ng/mL (< 0.028)
[2018-04-20 05:02] LABS: CKMB 0.7 ng/mL (0-6.6); Troponin I 0.026 ng/mL (< 0.028)
--- NOTE | 2018-04-20 05:15 | PDOC.FM ---
- Subjective Subjective: Pt. states she did well overnight. She said her chest pain was better than it was at home. She denies any SOB, headaches, or abdominal pain. Pt. expresses concern about having to go back for cath. - Objective MAR Reviewed: Yes Vital Signs & Weight: Vital Signs (12 hours) Temp Pulse Resp Pulse Ox 04/20/18 00:00 98.1 F 70 15 95 Result Diagrams: 04/19/18 20:40 04/19/18 20:40 <Slava Quintanilla - Last Filed: 04/20/18 08:44> - Objective Vital Signs & Weight: Vital Signs (12 hours) Temp Pulse Resp BP BP BP Pulse Ox 04/20/18 11:48 97.7 F 67 16 163/74 H 97 04/20/18 11:25 97.7 F 67 16 163/74 H 97 04/20/18 10:45 76 04/20/18 08:40 97.8 F 76 14 189/87 H 96 04/20/18 08:27 189/87 H 04/20/18 08:00 97.8 F 76 14 96 04/20/18 04:15 97.8 F 60 15 154/72 H 98 I&O: 04/19/18 04/20/18 04/21/18 06:59 06:59 06:59 Intake Total 620 Output Total 850 Balance -230 Result Diagrams: 04/19/18 20:40 04/19/18 20:40 <Vikram Berg - Last Filed: 04/20/18 12:06> Phys Exam - Physical Examination Constitutional: NAD HEENT: PERRLA, moist MMs Neck: no JVD, full ROM Respiratory: no wheezing, clear to auscultation bilateral Cardiovascular: RRR, no significant murmur, no rub Gastrointestinal: soft, non-tender, no distention, positive bowel sounds Musculoskeletal: pulses present mild edema, non pitting Neurological: normal sensation, moves all 4 limbs Psychiatric: normal affect, A&O x 3 Skin: no rash, cap refill <2 seconds <Slava Quintanilla - Last Filed: 04/20/18 08:44> Dx/Plan (1) Anxiety Code(s): F41.9 - ANXIETY DISORDER, UNSPECIFIED Status: Acute (2) Chest pressure Code(s): R07.89 - OTHER CHEST PAIN Status: Acute (3) Hypertensive urgency Code(s): I16.0 - HYPERTENSIVE URGENCY Status: Acute (4) HLD (hyperlipidemia) Code(s): E78.5 - HYPERLIPIDEMIA, UNSPECIFIED Status: Chronic (5) HTN (hypertension) Code(s): I10 - ESSENTIAL (PRIMARY) HYPERTENSION Status: Chronic (6) Hypothyroid Code(s): E03.9 - HYPOTHYROIDISM, UNSPECIFIED Status: Chronic (7) T2DM (type 2 diabetes mellitus) Status: Chronic - Plan Plan: This is a 67 yo female with a PMH of a recent heart cath with LIS placement, HTN , DMII, HLD, hyperthyroidism Hypertensive urgency -Monitor on tele obs -PRN hydralazine 20 mg IV Q2h for BP over 160/90, consider changing to labetalol Chest pressure s/p LIS placement 04/15 -Trending Troponins and CKMB, currently negative for ischemia -loading dose of brilinta 180 mg po x1 with aspirn 325 Anxiety -Possible cause of chest pain -Continue home meds HLD -Continue home meds HTN -Continue home meds Hypothyroidism -Continue home meds DMII -Continue home meds -SSI with EMILI lakhani <Slava Quintanilla - Last Filed: 04/20/18 08:44> Attending Addendum - Attending Addendum Date/Time: 04/20/18 1205 I personally evaluated the patient and discussed the management with Dr. Quintanilla. I agree with the History, Examination, Assessment and Plan documented above with any addition or exceptions noted below. Patient changed to observation status as she does not currently meet inpatient criteria. Her BP are improved, but will work to get better control through today with addition or Norvasc. Likely discharge later today if improved. She was evaluated by cardiology and no repeat interventions needed at this time. Patient will be sent home on Nitro for anginal type symptoms. She has been counselled extensively on the risk/benefit of Brillenta and she is aware of the need to continue this medication for now. <Vikram Berg - Last Filed: 04/20/18 12:06>
[2018-04-20] MEDS ORDERED: Levothyroxine Sodium 50 MCG TAB PO SCH (06:00)
[2018-04-20] MEDS ORDERED: Glimepiride 4 MG TAB PO SCH (07:30)
[2018-04-20] MEDS ORDERED: Non-Formulary Item 1 EACH (Saxagliptin Hcl [Onglyza] 5 MG) PO SCH (09:00)
[2018-04-20] MEDS ORDERED: Icosapent Ethyl [Vascepa] 2 GM PO SCH (09:00)
[2018-04-20] MEDS ORDERED: metFORMIN 500 MG TAB PO SCH (09:00)
[2018-04-20] MEDS ORDERED: Pioglitazone HCl 45 MG TAB PO SCH (09:00)
[2018-04-20] MEDS ORDERED: Oxybutynin ER 5 MG TAB PO SCH (09:00)
[2018-04-20] MEDS ORDERED: Enoxaparin Sodium 40 MG/0.4 ML SYRINGE SC SCH (09:00)
[2018-04-20] MEDS ORDERED: Lisinopril 20 MG TAB PO SCH (09:00)
[2018-04-20] MEDS ORDERED: Alogliptin 25 MG TAB PO SCH (09:00)
[2018-04-20] MEDS ORDERED: Amlodipine 5 MG TAB PO SCH (09:00)
[2018-04-20] MEDS ORDERED: Insulin Glargine 16 UNITS in Pre-Filled Syringe 1 EACH SC SCH (09:00)
[2018-04-20] MEDS ORDERED: Metoprolol Tartrate 100 MG TAB PO SCH (09:00)
[2018-04-20] MEDS ORDERED: INSULIN GLARGINE HUM REC ANLOG 16 UNIT SC SCH (09:00)
[2018-04-20] MEDS ORDERED: Nitroglycerin 0.4 MG TAB (25 Tab Bottle) SL PRN (09:46)
--- NOTE | 2018-04-20 10:03 | CON ---
DATE OF CONSULTATION: 04/20/2018. REASON FOR CONSULTATION: Recurrent chest pressure. HISTORY OF PRESENT ILLNESS: Ms. Mills is a very pleasant 67-year-old woman recently presented with unstable angina, underwent stent implantation in left anterior descending artery and now returns with recurrent chest pressure. Ms. Mills initially presented with severe chest pressure and shortness of breath. She underwent stress testing and was found to have severe ischemia of the anterior wall. The patient underwent cardiac catheterization and was found to have a critical stenosis in the left anterior descending artery. The patient underwent stent implantation. It was a drug-eluting stent, a 3.5 x 20 mm drug-coated stent was placed. It has been noted at that time, the patient was given a very high dose of heparin. Despite the heparin, really could not achieve a therapeutic ACT, therefore, ultimately she was given Angiomax. Because of this, she had a sheath in place for quite a while, confirming appropriate ACTs and ultimately did develop some hematoma formation, but did not have a pseudoaneurysm. She had some groin soreness. The patient was discharged on aspirin plus Brilinta and was given samples of Brilinta, but she said she read the package insert about not taking aspirin more than 162 mg a day and also not taking more than 40 mg of simvastatin. She said she was taking aspirin 162 mg and simvastatin 40 mg, therefore decided not to take the Brilinta at that point. A couple of days later, she started having chest pressure. She came back to the emergency room for further evaluation. There are no EKG changes. The patient is pain free now. She was reloaded with Brilinta and also given nitrates. She did not have nitroglycerin to take at home. HOME MEDICATIONS: The medications at home that were prescribed was, 1. Aspirin. She was actually prescribed to take 81 mg a day, but she was taking 162 mg. 2. Brilinta, but she did not take that. 3. She was taking Lisinopril. 4. Metoprolol. 5. Insulin. 6. Metformin. 7. Actos. ALLERGIES: None known. SOCIAL HISTORY: No alcohol or tobacco abuse. REVIEW OF SYSTEMS: Constitutional: No significant weight gain or loss. Vision : No changes. Hearing: No changes. Pulmonary: No cough or wheezing. Gastrointestinal: No nausea, vomiting, diarrhea. Skin: No rashes. Neurologic : No unilateral weakness or numbness. Psychiatric: No unusual depression or anxiety. PHYSICAL EXAMINATION: GENERAL: This is a pleasant 67-year-old woman resting comfortably, in no distress. VITAL SIGNS: Her blood pressure is very high 189/87 even after retaking with a large cuff, pulse 76 regular. HEENT: Eyes, sclerae nonicteric. Mouth, mucous membranes moist. NECK: Supple, no lymphadenopathy. LUNGS: Clear, no wheezing, rales or rhonchi. CARDIAC: Normal S1, normal S2. There is no murmur, rub or gallop. ABDOMEN: Obese, nontender, no hepatosplenomegaly. EXTREMITIES: Warm, dry. No clubbing, cyanosis or edema. IMAGING: EKGs showed no ischemia. The cardiac enzymes are all within the normal range, the highest being 0.026, still within normal range. I did review the cardiac catheterization films. The stent at the conclusion of the procedure was patent with good step up and step down. I did cross a septal perforating artery and a diffusely diseased small diagonal. ASSESSMENT: 1. Diabetes. 2. Recurrent chest pressure. I suspect this is most likely related to one of the side branches. Certainly, this is not a stent thrombosis as she would have severe unrelenting pain and shortness of breath. Unfortunately, the patient did not take the Brilinta. She was uncertain whether was safe to do so. She was prescribed to take the Brilinta, but she decided not to take it. The patient certainly could have angina from the diagonal branch or the septal perforating artery. Less likely, it would be angina from the LAD itself. I explained to the patient that if the source of discomfort is either the septal perforating artery or diagonal, then no intervention would be indicated. The risk would greatly outweigh the benefit. PLAN: If she continues to have chest pain; however, cardiac catheterization may be appropriate to be certain that there is no evidence of any ischemia in either edge of the stent. The patient prefers medical therapy trial first. She did have quite a bit of discomfort as mentioned having the sheath in for quite a while and also her body size with a BMI, which was 39 also makes the access slightly more likely to be difficult, although in her case, the access was really not very difficult. She is still sore in that area. Therefore, she had this repeat catheterization. Radial catheterization could be considered. The patient was restarted on the Brilinta, which was actually started last night. We will also change her to Crestor instead of simvastatin as she is very concerned about that combination. Make sure she is on the 81 mg aspirin and add nitroglycerin if she has recurrent chest pain or pressure. ADDENDUM: If the patient is doing well, to be released home this afternoon. MTDD
[2018-04-20 11:26] VITALS: TEMP 97.7
--- NOTE | 2018-04-20 13:04 | EKG ---
Test Reason : ROUTINE Blood Pressure : / mmHG Vent. Rate : 065 BPM Atrial Rate : 065 BPM P-R Int : 158 ms QRS Dur : 100 ms QT Int : 414 ms P-R-T Axes : 043 -29 047 degrees QTc Int : 430 ms Sinus rhythm with marked sinus arrhythmia Otherwise normal ECG When compared with ECG of 19-APR-2018 20:34, (Unconfirmed) Nonspecific T wave abnormality, worse in Lateral leads Confirmed by SANGEETA FERRER, SBret ([id number]) on 04/20/2018 1:03:47 PM Referred By: ROBERT rodriguez Confirmed By:DR. Roxie RUTHERFORD MD
--- NOTE | 2018-04-20 13:04 | EKG ---
Test Reason : ROUTINE Blood Pressure : / mmHG Vent. Rate : 061 BPM Atrial Rate : 061 BPM P-R Int : 154 ms QRS Dur : 100 ms QT Int : 408 ms P-R-T Axes : 047 -31 048 degrees QTc Int : 410 ms Normal sinus rhythm with sinus arrhythmia Left axis deviation Nonspecific T wave abnormality Abnormal ECG When compared with ECG of 20-APR-2018 01:38, (Unconfirmed) No significant change was found Confirmed by SANGEETA FERRER, . S. ([id number]) on 04/20/2018 1:03:53 PM Referred By: ROBERT rodriguez Confirmed By:DR. Roxie RUTHERFORD MD
--- NOTE | 2018-04-20 15:43 | PRG ---
DATE OF SERVICE: 04/20/2018 SUBJECTIVE: Ms. Mills feels fine. She has no further chest pain or tightness. She is back on the ticagrelor. Blood pressure was high this morning, but it is good now with amlodipine. MEDICATIONS: She will go home on the followin. Amlodipine 5 mg a day. 2. Aspirin 81 mg a day. 3. Rosuvastatin 20 mg a day. 4. Lisinopril 20 mg a day. 5. Metoprolol tartrate 100 mg twice a day. I have asked her to see us in the office within a few weeks. Nitroglycerin if needed. Her chest dis comfort has not returned. I explained to her that if she has continued or recurrent pain, we could d o heart catheterization, but I suspect her anginal symptoms are related to side branch, either the se ptal perforating artery or the small diagonal branch. Both of these would be treated conservatively. If the symptoms persist, however, catheterization could be done to reevaluate the stent. Clearly t he stent is patent or she would have ongoing chest pains. In addition, EKG showed no changes and the cardiac enzymes were in the normal range.
[2018-04-20 17:10] VITALS: BP 159/69
[2018-04-20] MEDS ORDERED: Rosuvastatin 20 MG TAB PO SCH (21:00)
[2018-04-20] MEDS ORDERED: Simvastatin 40 MG TAB PO SCH (21:00)
--- NOTE | 2018-04-21 04:25 | DIS-2 ---
DATE OF ADMISSION: 04/19/2018 DATE OF DISCHARGE: 04/20/2018 RESIDENT: Slava Quintanilla DO ADMITTING ATTENDING: Dr. Slade. DISCHARGE ATTENDING: Dr. Berg. CONSULTATIONS: Cardiology. PROCEDURES: None. PRIMARY DIAGNOSIS: Hypertensive urgency. SECONDARY DIAGNOSES: Diabetes, hypertension, hyperlipidemia, hypothyroidism. DISCHARGE MEDICATIONS: Nitrostat 0.4 mg sublingual every 5 minutes p.r.n. chest pain. DISCONTINUED MEDICATIONS: Simvastatin. NEW MEDICATIONS: Include the above and Nitrostat as well as Crestor. HISTORY OF PRESENT ILLNESS AND HOSPITAL COURSE: This is a 67-year-old female that presented to the E R last night with chief complaint of chest pain. She was found to have blood pressures with systolic s in the 200. She was treated with hydralazine. Blood pressure decreased. During her time here, [facility] rdiology visited with her and is not suspicious of stent thrombosis. Troponins and EKGs were negativ e x3. Patient was doing well at time of discharge with decreased chest pain. DISPOSITION: Stable. DISCHARGE INSTRUCTIONS: 1. Location: Home. 2. Diet: Cardiac and diabetic diet. 3. Activity: As tolerated. 4. Follow up: With customer project manager as instructed with PCP in the next 1-2 weeks.
--- NOTE | 2018-04-21 11:58 | EKG ---
Test Reason : Blood Pressure : / mmHG Vent. Rate : 077 BPM Atrial Rate : 077 BPM P-R Int : 140 ms QRS Dur : 098 ms QT Int : 394 ms P-R-T Axes : 054 -33 051 degrees QTc Int : 445 ms Normal sinus rhythm Left axis deviation Abnormal ECG Confirmed by AYAKA CORONA ([id number]), scientific editor VICKIE MORENO ([id number]) on 04/21/2018 11:57:56 AM Referred By: CJ Confirmed By:AYAKA CORONA
[2018-04-26] MEDS ORDERED: DULAGLUTIDE 0.5 MG SC SCH (09:00)
== END 2018-04-20 17:51 | disposition home or self-care (01) ==
LOC: ERS 20:29 → 2NO 23:15 → INTOOBSV 23:15
PROVIDERS: ADMIT Student in an Organized Health Care Education/Training Program; ATTEND Student in an Organized Health Care Education/Training Program
DX: I16.0 Hypertensive urgency (principal); I25.10 Atherosclerotic heart disease of native coronary artery without angina pectoris; E11.9 Type 2 diabetes mellitus without complications; E78.5 Hyperlipidemia, unspecified; E03.9 Hypothyroidism, unspecified; Z79.82 Long term (current) use of aspirin; Z79.4 Long term (current) use of insulin; Z79.899 Other long term (current) drug therapy
CPT/HCPCS: 71045; 80053; 82553 ×3; 82962; 84484 ×2; 85025; 93005 ×2; 94760; 99285; G0378; 36415; 36416; 93010; A4216; J1650

== ENCOUNTER 2018-07-04 12:55 | Outpatient (CLI) | payer MEDICARE | END 2018-07-04 12:56 | disposition home or self-care (01) | LOC: BICMAMMO 12:55 | PROVIDERS: ATTEND Family Medicine | DX: Z12.31 Encounter for screening mammogram for malignant neoplasm of breast (principal); R92.1 Mammographic calcification found on diagnostic imaging of breast | CPT/HCPCS: 77063; 77067 ==

== ENCOUNTER 2018-08-29 17:23 | Emergency (ER) | payer MEDICARE ==
[2018-08-29] MEDS ORDERED: Oxymetazoline HCl 0.05% ( 15 ML ) ONE (19:19)
[2018-08-29 19:27] LABS: INR-International Normal Ratio 0.9; PTT 26.9 SEC (22.9-36.1); Prothrombin Time 12.5 SEC (12.0-14.7)
== END 2018-08-29 19:50 | disposition home or self-care (01) ==
LOC: ERS 17:23
DX: R04.0 Epistaxis (principal); E11.9 Type 2 diabetes mellitus without complications; E03.9 Hypothyroidism, unspecified; E78.5 Hyperlipidemia, unspecified; I10 Essential (primary) hypertension; Z79.82 Long term (current) use of aspirin; Z79.4 Long term (current) use of insulin; Z79.899 Other long term (current) drug therapy
CPT/HCPCS: 36415; 85610; 85730; 99283

== ENCOUNTER 2018-10-19 11:22 | Emergency (ER) | payer MEDICARE | END 2018-10-19 12:58 | disposition home or self-care (01) | LOC: ERS 11:22 | DX: I10 Essential (primary) hypertension (principal); E78.5 Hyperlipidemia, unspecified; E03.9 Hypothyroidism, unspecified; E11.9 Type 2 diabetes mellitus without complications; Z79.4 Long term (current) use of insulin; Z79.82 Long term (current) use of aspirin; Z79.899 Other long term (current) drug therapy | CPT/HCPCS: 99283 ==

== ENCOUNTER 2018-12-09 22:10 | Emergency (ER) | payer MEDICARE ==
[2018-12-09 23:08] LABS: Hemoglobin 12.7 g/dL (12.0-16.0); Mean Corpuscular HGB CONC 33.8 g/dL (32.0-36.0); Mean Corpuscular Hemoglobin 29.2 pg (27.0-31.0); Mean Corpuscular Volume 86.6 fL (78.0-98.0); RBC Distribution Width 12.5 % (11.5-14.5); Red Blood Cell (RBC) Count 4.35 mill/uL (4.20-5.40); White Blood Cell (WBC) Count 6.3 thou/uL (4.8-10.8)
[2018-12-09 23:18] LABS: Bilirubin Negative (Negative); Blood, Urine Moderate (Negative); Clarity CLOUDY (Clear); Glucose, Urine (Dipstick) Negative (Negative); Leukocyte Negative (Negative); Nitrite Negative (Negative); Protein, Urine (Dipstick) Trace mg/dL (Neg-Trace); Specific Gravity, Urine 1.013 (1.002-1.036)
[2018-12-09 23:19] LABS: Bacteria/HPF None Seen HPF (None Seen); Hyaline Casts/LPF 4-6 HYALINE CAST LPF (0-3 Hyaline); Squamous Epithelial 0-3 HPF (0-3); WBC/HPF 0-3 HPF (0-3)
[2018-12-09 23:23] LABS: ALT (SGPT) 61 U/L (8-55); AST (SGOT) 80 U/L (5-34); Albumin 4.2 g/dL (3.4-4.8); Alkaline Phosphatase 122 U/L (40-150); Anion Gap 16 mmol/L (10-20); BUN (Urea Nitrogen) 14 mg/dL (9.8-20.1); Bilirubin, Total 1.6 mg/dL (0.2-1.2); Calc. Creatinine Clearance 0 mL/min (70-130); Calcium 10.4 mg/dL (7.8-10.44); Carbon Dioxide 26 mmol/L (23-31); Chloride 99 mmol/L (98-107); Estimated GFR-MDRD 66; Globulin 2.3 g/dL (2.4-3.5); Glucose 218 mg/dL (80-115); Potassium 3.1 mmol/L (3.5-5.1); Protein, Total 6.5 g/dL (6.0-8.3); Sodium 138 mmol/L (136-145)
[2018-12-09 23:24] LABS: #Lymphocytes 0.5 thou/uL (1.20-3.40); #Monocytes 0.6 thou/uL (0.11-0.59); #Neutrophils 5.1 thou/uL (1.40-6.50); %Basophils 0.3 % (0.0-1.0); %Eosinophils 0.3 % (0.0-10.0); %Lymphocytes 8.1 % (21.0-51.0); %Monocytes 10.2 % (0.0-10.0); %Neutrophils 81.1 % (42.0-75.0); Mean Platelet Volume 7.6 fL (7.4-10.4); Platelet Count 94 thou/uL (130-400); Platelet Morphology Comment Appears Decreased
--- NOTE | 2018-12-09 23:46 | RAD ---
AP CHEST: History: Dysuria, hyperglycemia. Date: 12-09-18 Comparison: 04-19-18 FINDINGS: AP chest demonstrates cardiomegaly. Mild pulmonary vascular congestion is seen. No evidence of effusi ons, pneumonia, or pneumothorax seen. IMPRESSION: Cardiomegaly. POS: [facility]
--- NOTE | 2018-12-10 08:52 | CT ---
PRELIMINARY REPORT/[facility]/EMERGENTY AFTER-HOURS PROCEDURE CT Head Without Contrast EXAM DATE/TIME: 12/10/2018 12:37 AM CLINICAL HISTORY: 68 years old, female; Signs and symptoms; Other: Weakness; Patient HX: PT presents to ed due to gener alized weakness TECHNIQUE: Axial computed tomography images of the head/brain without contrast. COMPARISON: No relevant prior studies available. FINDINGS: Brain: Normal. No hemorrhage. No significant white matter disease. No edema. Ventricles: Normal. No ventriculomegaly. Bones/joints: Unremarkable. No acute fracture. Sinuses: Visualized sinuses are unremarkable. No acute sinusitis. Mastoid air cells: Visualized mastoid air cells are unremarkable. No mastoid effusion. Soft tissues: Unremarkable. IMPRESSION: No acute intracranial hemorrhage. Thank you for allowing us to participate in the care of your patient. Dictated and Authenticated by: Kedar Vega MD 12/10/2018 1:15 AM Central Time ([place] & [place]) FINAL REPORT HEAD CT WITHOUT CONTRAST: COMPARISON: 11/16/2008. HISTORY: Weakness. FINDINGS: This report is in agreement with the preliminary report by [facility]. No acute intracranial process. Hype rostosis frontalis internis noted. POS: [facility]
== END 2018-12-10 03:21 | disposition home or self-care (01) ==
LOC: ERS 22:10
DX: B34.9 Viral infection, unspecified (principal); R53.83 Other fatigue; E11.9 Type 2 diabetes mellitus without complications; E78.5 Hyperlipidemia, unspecified; I10 Essential (primary) hypertension; E03.9 Hypothyroidism, unspecified; Z79.4 Long term (current) use of insulin; Z79.899 Other long term (current) drug therapy; Z79.82 Long term (current) use of aspirin
CPT/HCPCS: 36415; 70450; 71045; 80053; 81003; 81015; 83605; 84443; 84484; 85025; 87040; 87077; 87086; 87149; 87804; A4353

== ENCOUNTER 2018-12-11 01:51 | Inpatient (IN) | payer MEDICARE ==
--- NOTE | 2018-12-11 02:43 | PDOC.FPRHP ---
- History of Present Illness Chief Complaint: Positive Blood Cultures History of Present Illness: Ms Mills is a 68yo female with pmh of insulin dependent DMII, HTN, HLD, anxiety presenting to ED because she received a call reporting she had positive blood cultures and was to come to [facility] ED. She presented to [facility] ED on for weakness that started Monday. Reports having URI symptoms 2 weeks ago. Blood cultures were drawn in the ED Monday. She was discharged and followed up with her PCP Dr Cheema on Monday. She received an antibiotic shot in his office that started with an R, likely rocephin. This morning she received a call at 0100 to come into ED. Denies recent travel, new activities or foods. The only new complaint is left wrist tenderness and pain. ED Course: Vanc 1g, 1L NS Blood cultures drawn day prior during ED visit positive 2/2 for gram positive cocci - Allergies/Adverse Reactions Allergies Allergy/AdvReac Type Severity Reaction Status Date / Time No Known Allergies Allergy Verified 12/11/18 10:38 - Home Medications Medication Instructions Recorded Confirmed Type Dulaglutide [Trulicity] 0.5 mg SC Q7D 04/14/18 04/19/18 History Glimepiride [Amaryl] 8 mg PO DAILY 04/14/18 04/19/18 History Insulin Glargine,Hum.Rec.Anlog 16 units SC QAM 04/14/18 04/19/18 History [Lantus Solostar] Lisinopril 20 mg PO DAILY 04/14/18 04/19/18 History Pioglitazone HCl [Actos] 45 mg PO DAILY 04/14/18 04/19/18 History Saxagliptin HCl [Onglyza] 5 mg PO DAILY 04/14/18 04/19/18 History metFORMIN HCl 500 mg PO BID 04/14/18 04/19/18 History Aspirin [Aspir-Low] 162 mg PO DAILY 04/15/18 04/19/18 History Cholecalciferol (Vitamin D3) 4,000 unit PO DAILY 04/15/18 04/19/18 History [Vitamin D3] LORazepam [Lorazepam] 1 mg PO QPM PRN 04/15/18 04/19/18 History Levothyroxine Sodium 50 mcg PO QAM 04/15/18 04/19/18 History Metoprolol Tartrate [Lopressor] 100 mg PO BID 04/15/18 04/19/18 History Oxybutynin Chloride [Oxybutynin 10 mg PO DAILY 04/15/18 04/19/18 History Chloride ER] Ticagrelor [Brilinta] 90 mg PO BID #60 tab 04/17/18 04/19/18 Rx Amlodipine [Norvasc] 5 mg PO DAILY #30 tab 04/20/18 Rx Icosapent Ethyl [Vascepa] 2 gm PO DAILY 04/20/18 Rx Nitroglycerin [Nitrostat] 0.4 mg SL Q5MIN PRN #30 tab 04/20/18 Rx Rosuvastatin [Crestor] 20 mg PO HS #30 tab 04/20/18 Rx - History PMHx: HTN, HLD, DMII on insulin, hypothyroidism PSHx: LAD drug eluding stent place 04/15/18, hysterectomy, appendectomy, tonsillectomy, ocular lens implant FHx: not known- adopted Social: Denies alcohol, drug and tobacco use. - Vital signs BP: 107/63 HR: 90 RR: 20 Tmax: 98.0 Pox: 94% on RA Wt: 104kg - Physical Exam Constitutional: NAD, awake, alert and oriented, well developed HEENT: normocephalic and atraumatic, conjunctiva clear, grossly normal hearing, MMM, oropharynx clear Neck: supple, trachea midline Heart: RRR, no murmurs/rubs/gallops Lungs: CTAB, no respiratory distress, good air movement, no wheezing Abdomen: soft, non-tender, bowel sounds present Musculoskeletal: normal structure, normal tone, ROM grossly normal Neurological: no focal deficit Skin: no rash/lesions, good turgor, capillary refill <2 seconds Heme/Lymphatic: no petechia Psychiatric: normal mood and affect, good judgment and insight, intact recent and remote memory FMR H&P: Results - Labs Result Diagrams: 12/11/18 03:14 12/11/18 08:40 FMR H&P: A/P - Problem List (1) Bacteremia Current Visit: Yes Status: Acute Code(s): R78.81 - BACTEREMIA (2) HLD (hyperlipidemia) Current Visit: No Status: Chronic Code(s): E78.5 - HYPERLIPIDEMIA, UNSPECIFIED (3) HTN (hypertension) Current Visit: No Status: Chronic Code(s): I10 - ESSENTIAL (PRIMARY) HYPERTENSION (4) Hypothyroid Current Visit: No Status: Chronic Code(s): E03.9 - HYPOTHYROIDISM, UNSPECIFIED (5) T2DM (type 2 diabetes mellitus) Current Visit: No Status: Chronic (6) Anxiety Current Visit: No Status: Acute Code(s): F41.9 - ANXIETY DISORDER, UNSPECIFIED - Plan Ms Mills is a 68yo female admitted for gram + cocci bacteremia Bacteremia - Afebrile, no leukocytosis, VSS - Blood cxs Gram + cocci 2/2 bottles - S/p 1L in ED - Continue Vanc - Blood culture sensitivities pending - Echo ordered - Admit to medical Insulin dependent DMII - Continue home meds - Moderate SSI, hypoglycemic protocol - ACHS accuchecks - CC diet Anxiety - Continue home meds HLD - Continue home meds HTN - Continue home meds Hypothyroid - Continue home meds Code Status: FULL DVT ppx: SCDs PCP: Dr Cheema FMR H&P: Upper Level - Pertinent history 68 yo female presenting to the ER after being seen 2 days ago at [facility]. Starting Monday, she reports malaise and fatigue. Hx of HTN, hypothyroid, DMII. Endorses compliance with medications including trulicity, insulin 30u, synthroid, amlodipine. In the ER yesterday, she had blood cultures drawn. Was d/c home with instructions to f/u with PCPAnette, the next day. At Dr. Cheema's office, she received an abx injection, she thinks rocephin. This morning around 01:00 am she was called by [facility] telling her there was an infection in her blood. She denies any recent travel, new activities or foods. The only new complaint is left wrist tenderness and pain. - Pertinent findings 161/68 HR: 93 TEMP: 99.5 RR: 20 95% on RA Bld cx: grm positive cocci in clusters CXR: cardiomegaly, no acute process seen GEN: NAD, AAOx4 CARD: RRR, no mgr PULM: ctab EXT: left wrist TTP, no cyanosis or edema - Plan Date/Time: 12/11/18 0242 Jose Nieto DO, have evaluated this patient and agree with findings/plan as outlined by employee communications intern resident. Pertinent changes/additions are listed here. #bacteremia -no obvious source at this point -ECHO -cefepime and vanc #DMII -continue home regimen #HTN #Hypothyroid Addendum - Attending - Attending Attestation Date/Time: 12/11/18 1123 I personally evaluated the patient and discussed the management with Dr. Carroll. H&P repeated by me. I agree with the History, Examination, Assessment and Plan documented above with any addition or exceptions noted below. 68 y/o female with a few weeks of increased fatigue. Had ER visit on Monday pm for this complaint and had blood cx drawn. At that time CXR, UA, and CBC were normal. She saw her PCP Dr. Cheema yesterday and was given a shot of rocephin. Early this am received a call from [facility] that her blood cx were positive and that she should return. In ER was given vancomycin and cefepime. At this time she denies fever, chills, headache, neck or back pain or stiffness , abdominal pain, cough, congestion, dysuria, vaginal discharge or bleeding. She has mild redness and swelling of her left wrist that started yesterday ( after the blood cx were drawn). Exam: well appearing, no acute distress. Heart- no murmurs, Lungs: ctab, abdomen: soft, nt/nd, +bs, neg murphys, no rebound. Skin: mild erythema circumfrentially to L wrist with mild petechia. Labs reviewed. MSSA bacteremia- unknown primary source. Urine cx pending. CXR negative. Check ESR/CRP, xray of L wrist and ECHO. No physical symptoms of endocarditis. Continue Vanc and Cefepime until cx results sensitivities. Thrombocytopenia- mild- most likely secondary to bacteremia. If persistent will add peripheral smear. Hypokalemia- replace T2DM- continue home meds L wrist pain and redness- check L wrist xray and consider ultrasound. Also check uric acid to r/o gout.
[2018-12-11] MEDS ORDERED: Cefepime 2 GM VIAL ONE (03:27)
[2018-12-11] MEDS ORDERED: Sodium Chloride 0.9% 100 ML ONE (03:27)
[2018-12-11 03:44] LABS: ALT (SGPT) 35 U/L (8-55); AST (SGOT) 26 U/L (5-34); Albumin 3.6 g/dL (3.4-4.8); Alkaline Phosphatase 98 U/L (40-150); Anion Gap 15 mmol/L (10-20); BUN (Urea Nitrogen) 22 mg/dL (9.8-20.1); Bilirubin, Total 1.7 mg/dL (0.2-1.2); Calc. Creatinine Clearance 0 mL/min (70-130); Calcium 9.9 mg/dL (7.8-10.44); Carbon Dioxide 26 mmol/L (23-31); Chloride 97 mmol/L (98-107); Estimated GFR-MDRD 47; Globulin 2.6 g/dL (2.4-3.5); Glucose 190 mg/dL (80-115); Protein, Total 6.2 g/dL (6.0-8.3); Sodium 135 mmol/L (136-145)
[2018-12-11 03:45] LABS: Potassium 2.8 mmol/L (3.5-5.1)
[2018-12-11 03:47] LABS: Hemoglobin 11.3 g/dL (12.0-16.0); Mean Corpuscular HGB CONC 33.6 g/dL (32.0-36.0); Mean Corpuscular Hemoglobin 29.3 pg (27.0-31.0); Mean Corpuscular Volume 87.2 fL (78.0-98.0); Mean Platelet Volume 7.8 fL (7.4-10.4); Platelet Count 76 thou/uL (130-400); RBC Distribution Width 12.5 % (11.5-14.5); Red Blood Cell (RBC) Count 3.86 mill/uL (4.20-5.40)
[2018-12-11 03:50] LABS: Band 28 % (5-11); Lymphocytes 14 % (21-51); MDiff Complete? YES; Monocytes 4 % (0-10); Neutrophil 54 % (42-75); Platelet Morphology Comment Appears Decreased
[2018-12-11 04:15] LABS: Bilirubin Small (Negative); Blood, Urine Negative (Negative); Clarity TURBID (Clear); Glucose, Urine (Dipstick) Negative (Negative); Leukocyte Small (Negative); Nitrite Negative (Negative); Protein, Urine (Dipstick) 30 mg/dL (Neg-Trace); Specific Gravity, Urine 1.023 (1.002-1.036)
[2018-12-11 04:17] LABS: Bacteria/HPF None Seen HPF (None Seen); RBC/HPF 0-3 HPF (0-3); WBC/HPF 21-50 HPF (0-3)
[2018-12-11 04:25] LABS: Yeast-AUWi Flag 183.2 (0-25.0)
[2018-12-11 04:45] LABS: Transitional Epithelial 0-3 HPF (0-3)
[2018-12-11 04:48] LABS: Renal Epithelial 0-3 HPF (0-3)
[2018-12-11 04:49] LABS: Crystals/HPF 1+ AMORPH URATES HPF (Negative); Yeast-All Forms None Seen HPF (None Seen)
[2018-12-11 04:50] LABS: Hyaline Casts/LPF NONE SEEN LPF (0-3 Hyaline); Other Casts/LPF 0-3 FINELY GRAN LPF (0-3 Hyaline)
[2018-12-11] MEDS ORDERED: Dextrose 50% Abboject 50 ML SYRINGE SLOW IVP PRN (05:44)
[2018-12-11] MEDS ORDERED: Acetaminophen 325 MG TAB PO PRN (05:44)
[2018-12-11] MEDS ORDERED: Dextrose 5% in Water 1,000 ML IV PRN (05:44)
[2018-12-11] MEDS ORDERED: HumaLOG 300 UNITS/3 ML VIAL ONE (06:24)
[2018-12-11] MEDS ORDERED: Nitroglycerin 0.4 MG TAB (25 Tab Bottle) SL PRN (06:25)
[2018-12-11] MEDS: HumaLOG 300 UNITS/3 ML VIAL SC PRN ×4 (06:26→22:10)
[2018-12-11] MEDS ORDERED: Potassium Chloride 40 MEQ in Premix Bag 1 BAG IVPB SCH (08:00)
[2018-12-11] MEDS ORDERED: Potassium Chloride 20 MEQ TAB PO SCH (08:45)
[2018-12-11] MEDS ORDERED: DULAGLUTIDE 0.5 MG SC SCH (09:00)
[2018-12-11 09:11] LABS: Anion Gap 14 mmol/L (10-20); BUN (Urea Nitrogen) 21 mg/dL (9.8-20.1); Calc. Creatinine Clearance 0 mL/min (70-130); Carbon Dioxide 23 mmol/L (23-31); Chloride 101 mmol/L (98-107); Estimated GFR-MDRD 60; Glucose 192 mg/dL (80-115); Potassium 3.1 mmol/L (3.5-5.1); Sodium 135 mmol/L (136-145)
[2018-12-11] MEDS: Aspirin 81 mg Enteric Coated Tablet PO SCH (09:13)
[2018-12-11] MEDS: Oxybutynin ER 5 MG TAB PO SCH (09:13)
[2018-12-11] MEDS: Amlodipine 5 MG TAB PO SCH (09:14)
[2018-12-11] MEDS: Insulin Glargine 15 UNITS in Pre-Filled Syringe 1 EACH SC SCH (09:19)
--- NOTE | 2018-12-11 11:30 | RAD ---
LEFT WRIST THREE VIEWS: History: Pain and swelling. Comparison: None. FINDINGS: No acute fracture or subluxation is evident. 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 There is dif fuse osteopenia. IMPRESSION: 1. No acute osseous abnormality. 2. Diffuse osteopenia. POS: [facility]
[2018-12-11 12:39] VITALS: BMI 39.3
[2018-12-11] MEDS: Ondansetron PF 4 MG/2 ML Vial IVP SCH ×2 (13:39→19:48)
[2018-12-11] MEDS: Metoprolol Tartrate 100 MG TAB PO SCH (14:51)
[2018-12-11] MEDS: Vancomycin HCl 1 GM in Premix Bag 1 BAG IVPB SCH (14:56)
[2018-12-11] MEDS ORDERED: Vancomycin HCl 1 GM in Premix Bag 1 BAG IVPB SCH (15:00)
--- NOTE | 2018-12-11 16:07 | ULT ---
LEFT WRIST DIAGNOSTIC ULTRASOUND: INDICATION: Left wrist pain. Concern for effusion. COMPARISON: Left wrist radiograph dated 12/11/2018. FINDINGS: No joint capsular distention is seen within the wrist carpus. Soft tissues appear within normal limi ts. IMPRESSION: No large joint effusion seen within the wrist carpal joints. No soft tissue abnormality grossly evid ent. POS: [facility]
[2018-12-11] MEDS: Rosuvastatin 20 MG TAB PO SCH (20:48)
[2018-12-12] MEDS: Vancomycin HCl 1 GM in Premix Bag 1 BAG IVPB SCH (03:54)
[2018-12-12] MEDS: Ondansetron PF 4 MG/2 ML Vial SLOW IVP PRN (04:32)
[2018-12-12] MEDS: Levothyroxine Sodium 50 MCG TAB PO SCH (05:51)
[2018-12-12] MEDS: HumaLOG 300 UNITS/3 ML VIAL SC PRN ×4 (05:55→21:01)
--- NOTE | 2018-12-12 06:25 | PDOC.FM ---
- Subjective Subjective: 68 yo female seen at bedside this AM. Patient reports she is feeling much better. Patient is wanting to go home as soon as it is safe because her daughter is free for Spring Break. No other complaints. - Objective Vital Signs & Weight: Vital Signs (12 hours) Temp Pulse Resp BP Pulse Ox 12/12/18 03:21 98.8 F 88 20 143/67 H 12/11/18 23:55 99.3 F 79 20 134/63 96 12/11/18 20:38 98.7 F 83 18 139/63 95 Weight Weight 104 kg I&O: 12/10/18 12/11/18 12/12/18 06:59 06:59 06:59 Intake Total 950 Output Total 1050 Balance -100 Result Diagrams: 12/12/18 07:02 12/12/18 07:02 Phys Exam - Physical Examination Constitutional: NAD HEENT: moist MMs Respiratory: no wheezing, clear to auscultation bilateral Cardiovascular: RRR, no significant murmur Gastrointestinal: soft, non-tender, no distention, positive bowel sounds Musculoskeletal: no edema, pulses present Redness and reduced ROM to left wrist Neurological: moves all 4 limbs Psychiatric: A&O x 3 Skin: cap refill <2 seconds Dx/Plan (1) Bacteremia Code(s): R78.81 - BACTEREMIA Status: Acute (2) Elevated uric acid in blood Code(s): E79.0 - HYPERURICEMIA W/O SIGNS OF INFLAM ARTHRIT AND TOPHACEOUS DIS Status: Acute (3) Anxiety Code(s): F41.9 - ANXIETY DISORDER, UNSPECIFIED Status: Acute (4) HLD (hyperlipidemia) Code(s): E78.5 - HYPERLIPIDEMIA, UNSPECIFIED Status: Chronic (5) HTN (hypertension) Code(s): I10 - ESSENTIAL (PRIMARY) HYPERTENSION Status: Chronic (6) Hypothyroid Code(s): E03.9 - HYPOTHYROIDISM, UNSPECIFIED Status: Chronic (7) T2DM (type 2 diabetes mellitus) Status: Chronic - Plan Plan: Bacteremia with unknown source - Afebrile, no leukocytosis, - Blood cxs Gram + cocci 2/2 bottles - Continue Vancomycin - Blood culture sensitivities pending - Left wrist XR and US unremarkable - Echo EF 55-60% and no vegetations noted - Elevated ESR and CRP measured 12/11 - With unknown source will consult Dr. Morejon for rat exterminator antibiotic therapy. Wrist Pain - Will consider Gout etiology - Uric acid mildly elevated to 6.6 - Will treat with Indomethacin Insulin dependent DMII - Continue home meds - Moderate SSI - ACHS accuchecks - Patient will likely need change to regimen as outpatient Anxiety - Continue home meds HLD - Continue home meds HTN - Continue home meds Hypothyroid - Continue home meds Disposition: Stable, will continue current plan of care Addendum - Attending - Attending Attestation Date/Time: 12/12/18 5410 I personally evaluated the patient and discussed the management with Dr. Lopez. I agree with the History, Examination, Assessment and Plan documented above with any addition or exceptions noted below. MSSA bacteremia- no obvious source- Appreciate Dr. Jean-Pierre armenta L wrist gout- start indomethacin Patient requesting to go home but need to wait for Dr. Jean-Pierre armenta for abx length.
[2018-12-12 08:02] LABS: Anion Gap 11 mmol/L (10-20); BUN (Urea Nitrogen) 15 mg/dL (9.8-20.1); Calc. Creatinine Clearance 121 mL/min (70-130); Calcium 9.2 mg/dL (7.8-10.44); Carbon Dioxide 29 mmol/L (23-31); Chloride 102 mmol/L (98-107); Estimated GFR-MDRD 78; Glucose 165 mg/dL (80-115); Sodium 139 mmol/L (136-145)
[2018-12-12 08:06] LABS: #Lymphocytes 0.8 thou/uL (1.20-3.40); #Monocytes 0.6 thou/uL (0.11-0.59); #Neutrophils 4.7 thou/uL (1.40-6.50); %Basophils 0.3 % (0.0-1.0); %Eosinophils 0.5 % (0.0-10.0); %Lymphocytes 12.8 % (21.0-51.0); %Monocytes 9.6 % (0.0-10.0); %Neutrophils 76.8 % (42.0-75.0); Hemoglobin 10.8 g/dL (12.0-16.0); Mean Corpuscular HGB CONC 33.2 g/dL (32.0-36.0); Mean Corpuscular Volume 87.2 fL (78.0-98.0); Mean Platelet Volume 8.5 fL (7.4-10.4); Platelet Count 99 thou/uL (130-400); RBC Distribution Width 12.6 % (11.5-14.5); Red Blood Cell (RBC) Count 3.71 mill/uL (4.20-5.40); White Blood Cell (WBC) Count 6.1 thou/uL (4.8-10.8)
[2018-12-12] MEDS: Lisinopril 20 MG TAB PO SCH (09:35)
[2018-12-12] MEDS: Oxybutynin ER 5 MG TAB PO SCH (09:35)
[2018-12-12] MEDS: Metoprolol Tartrate 100 MG TAB PO SCH (09:36)
[2018-12-12] MEDS: Indomethacin 25 mg Capsule PO SCH ×3 (09:36→21:00)
[2018-12-12] MEDS: Amlodipine 5 MG TAB PO SCH (09:37)
[2018-12-12] MEDS: Insulin Glargine 15 UNITS in Pre-Filled Syringe 1 EACH SC SCH (10:14)
[2018-12-12] MEDS ORDERED: Potassium Chloride 20 MEQ TAB PO SCH (10:15)
[2018-12-12] MEDS: Aspirin 81 mg Enteric Coated Tablet PO SCH (10:16)
[2018-12-12] MEDS: CEFAZOLIN 2 GM in Premix Bag 1 BAG IVPB SCH ×2 (16:15→23:53)
--- NOTE | 2018-12-12 17:01 | CT ---
CT THORAX WITHOUT IV CONTRAST: INDICATIONS: Abnormal lung sounds with bacteremia. COMPARISON: None. FINDINGS: There is nonspecific subsegmental volume loss within the left lower lobe. No confluent air space opa city, pleural effusion, or pneumothorax is evident. There is a sub-4-mm pulmonary nodule within the superior right lower lobe, on image 31 of series 3. No suspicious pulmonary nodule is identified. T here are coronary artery and thoracic aorta calcifications. No definite enlarged mediastinal lymph n odes are present. No axillary lymphadenopathy is evident. Lack of IV contrast limits evaluation of hilar lymphadenopathy. The visualized adrenal glands appear within normal limits. The spleen is at the upper limits of normal, measuring 12.9 cm. There is scattered degenerative and osteoarthritic ch daily. No definite acute osseous abnormalities evident. IMPRESSION: 1. Nonspecific left lower lobe subsegmental volume loss. 2. No consolidation, pleural fluid, or pneumothorax is evident. POS: [facility]
--- NOTE | 2018-12-12 18:29 | CON ---
DATE OF CONSULTATION: 12/12/2018 REASON FOR CONSULTATION: Bacteremia. HISTORY OF PRESENT ILLNESS: A 68-year-old with a history of coronary artery disease with prior stenting, hypertension, type 2 diabetes, in her usual state until about 2 or 3 days before admission when she developed general malaise and chills. Did not have any headaches. No visual symptoms, sore throat, odynophagia, or dysphagia. No respiratory symptoms. No back pain or abdominal pain. No diarrhea. No genitourinary symptoms or joint symptoms. She came to our emergency room and had workup, was released. Subsequently, blood cultures returned positive for Staphylococcus aureus and she was called in for admission. She has been given vancomycin. The organism is methicillin susceptible Staph aureus. REVIEW OF SYSTEMS: Currently, a 10-point review of systems is negative except for the left wrist, which is painful to touch and she has developed petechiae in the skin of the left hand. The remainder aspects are normal in the review of systems. PAST MEDICAL HISTORY: Type 2 diabetes, coronary artery disease with eluting stent, hysterectomy, appendectomy, tonsillectomy, hypothyroidism, and hypertension. FAMILY HISTORY: Noncontributory. SOCIAL HISTORY: Never smoker. Lives in [place] by herself. CURRENT MEDICATIONS: She had been on vancomycin, now she has been switched to cefazolin. She is also on; 1. Aspirin. 2. Indocin. 3. Levothyroxine. 4. Metoprolol. 5. Oxybutynin. PHYSICAL EXAMINATION: VITAL SIGNS: T-max 98.9, blood pressure 140/60, pulse 78, respirations 20, and O2 sat 96%. SKIN: She has few petechiae in the left hand and left wrist. The left wrist appears somewhat swollen. No other areas of significant skin findings. No lymphadenopathy. HEENT: Ocular movements conjugate. Sclerae white. Pupils are equal. Nasal passages patent. Oral cavity normal. NECK: Supple. No jugular vein distention. No back tenderness. LUNGS: Symmetric, clear breath sounds. HEART: S1 and S2. Regular rate without murmurs. ABDOMEN: Soft, not distended, tender. No ascites. No bladder distention. EXTREMITIES: No joint inflammatory activity except for the left wrist that is tender to touch. I believe the right first MPJ is somewhat tender as well. She moves extremities to some limitation because of the left wrist inflammatory process. NEUROLOGIC: She has good cognitive function. Plantar reflexes are normal. LABORATORY DATA: White cell count is 5000 up to 6.1, hemoglobin 11, and platelets 76,000 and 99,000 with 28% bands. Sodium 139, creatinine 0.74, uric acid 6.6, AST 26, and ALT 35. CRP 30. Albumin 3.6, globulin 2.6. IMAGING DATA: She had a brain CT, which did not show any abnormalities of significance. Chest x-ray was normal. She had a wrist x-ray with diffuse osteopenia, but no other findings of significance. ASSESSMENT: 1. Type 2 diabetes. 2. Coronary artery disease. 3. New onset of chills with general malaise and Staphylococcus aureus bacteremia. Strain is methicillin sensitive. 4. Left wrist and right 1st metatarsophalangeal joint pain. 5. Petequiae DISCUSSION: The differential diagnosis includes endocarditis, septic arthritis of left wrist, and possible septic arthritis of right 1st MPJ. She may have septic lung involvement as well. We will order a MIGUEL and a CT of chest. Switch her to cefazolin. Eventually, will need a PICC line and long-term treatment with cefazolin or similar product. The left wrist will have to continue to be monitored as well as the right first MPJ. Job ID: [id number] [facility]
[2018-12-12] MEDS: Rosuvastatin 20 MG TAB PO SCH (21:01)
[2018-12-13] MEDS: Metoprolol Tartrate 50 MG TAB PO SCH (06:06)
[2018-12-13] MEDS: Levothyroxine Sodium 50 MCG TAB PO SCH (06:07)
--- NOTE | 2018-12-13 06:13 | PDOC.FM ---
- Subjective Subjective: 68 yo female seen at bedside. Patient is very pleasant. She is very thankful for the care she has received. She states she feels much better and that she got good sleep overnight. Patient denies any pain, fevers, n/v/d. She states that her left wrist is much improved. - Objective Vital Signs & Weight: Vital Signs (12 hours) Temp Pulse Resp BP Pulse Ox 12/13/18 05:00 98.0 F 74 18 160/89 H 94 L 12/13/18 02:30 98.0 F 81 20 170/80 H 94 L 12/13/18 02:10 94 L 12/12/18 23:45 98.5 F 75 18 126/60 92 L 12/12/18 20:16 98.0 F 62 16 128/67 95 Weight Weight 104 kg I&O: 12/11/18 12/12/18 12/13/18 06:59 06:59 06:59 Intake Total 950 Output Total 1050 Balance -100 Result Diagrams: 12/12/18 07:02 12/13/18 07:51 Phys Exam - Physical Examination Constitutional: NAD HEENT: moist MMs Respiratory: no wheezing, clear to auscultation bilateral Cardiovascular: RRR, no significant murmur Gastrointestinal: soft, non-tender, no distention, positive bowel sounds Musculoskeletal: no edema, pulses present petechial rash to left wrist, no swelling or tenderness Neurological: moves all 4 limbs Psychiatric: A&O x 3 Skin: cap refill <2 seconds Dx/Plan (1) Bacteremia Code(s): R78.81 - BACTEREMIA Status: Acute (2) Elevated uric acid in blood Code(s): E79.0 - HYPERURICEMIA W/O SIGNS OF INFLAM ARTHRIT AND TOPHACEOUS DIS Status: Acute (3) Anxiety Code(s): F41.9 - ANXIETY DISORDER, UNSPECIFIED Status: Acute (4) HLD (hyperlipidemia) Code(s): E78.5 - HYPERLIPIDEMIA, UNSPECIFIED Status: Chronic (5) HTN (hypertension) Code(s): I10 - ESSENTIAL (PRIMARY) HYPERTENSION Status: Chronic (6) Hypothyroid Code(s): E03.9 - HYPOTHYROIDISM, UNSPECIFIED Status: Chronic (7) T2DM (type 2 diabetes mellitus) Status: Chronic (8) Gout Code(s): M10.9 - GOUT, UNSPECIFIED Status: Acute - Plan Plan: Bacteremia with unknown source - Afebrile, no leukocytosis, - Blood cxs Gram + cocci 2/2 bottles - D/C Vancomycin and switched to Cefazolin 12/12 - Left wrist XR and US unremarkable - Chest CT unremarkable - Echo EF 55-60% and no vegetations noted. MIGUEL today. - Elevated ESR and CRP measured 12/11 - Consulted Dr. Morejon, appreciate recommendations - Cefazolin as outpatient. - Monitor for septic arthritis vs Gout Wrist Pain - Will consider Gout etiology - Uric acid mildly elevated to 6.6 - Will treat with Indomethacin - Improved Insulin dependent DMII - Continue home meds - Moderate SSI - ACHS accuchecks - Patient will likely need change to regimen as outpatient Anxiety - Continue home meds HLD - Continue home meds HTN - Continue home meds Hypothyroid - Continue home meds Disposition: Stable, will continue current plan of care. Addendum - Attending - Attending Attestation Date/Time: 12/13/18 1109 I personally evaluated the patient and discussed the management with Dr. Lopez I agree with the History, Examination, Assessment and Plan documented above with any addition or exceptions noted below. MSSA bacteremia-will undergo MIGUEL today to r/o endocarditis. Currently on ancef per ID. Will also get PICC line for director long term care abx. No obvious source identified. [id number] home meds + SSI HTN- continue home meds CAD s/p stents- stable rehab consult for long-term abx
[2018-12-13 08:41] LABS: Anion Gap 12 mmol/L (10-20); BUN (Urea Nitrogen) 26 mg/dL (9.8-20.1); Calc. Creatinine Clearance 101 mL/min (70-130); Calcium 9.6 mg/dL (7.8-10.44); Carbon Dioxide 30 mmol/L (23-31); Chloride 104 mmol/L (98-107); Estimated GFR-MDRD 63; Glucose 212 mg/dL (80-115); Potassium 3.3 mmol/L (3.5-5.1); Sodium 143 mmol/L (136-145)
[2018-12-13] MEDS: Oxybutynin ER 5 MG TAB PO SCH (08:49)
[2018-12-13] MEDS: Indomethacin 25 mg Capsule PO SCH ×3 (08:50→20:01)
[2018-12-13] MEDS: Amlodipine 5 MG TAB PO SCH (08:50)
[2018-12-13] MEDS: Lisinopril 20 MG TAB PO SCH (08:51)
[2018-12-13] MEDS: Aspirin 81 mg Enteric Coated Tablet PO SCH (08:54)
[2018-12-13] MEDS: Insulin Glargine 15 UNITS in Pre-Filled Syringe 1 EACH SC SCH (08:54)
[2018-12-13] MEDS: CEFAZOLIN 2 GM in Premix Bag 1 BAG IVPB SCH ×2 (08:54→15:30)
[2018-12-13] MEDS ORDERED: Potassium Chloride 20 MEQ TAB PO SCH (09:15)
[2018-12-13] MEDS ORDERED: Aspirin 81 mg Enteric Coated Tablet PO SCH (11:45)
--- NOTE | 2018-12-13 15:12 | PRG ---
DATE OF SERVICE: 12/13/2018 SUBJECTIVE: The patient is going for MIGUEL in a few minutes. No change in symptoms. No back pain. Left wrist pain has improved significantly. OBJECTIVE: VITAL SIGNS: Vital signs have been normal with slight elevation of systolic blood pressure. EXTREMITIES: Left wrist inflammatory changes have resolved. Petechiae have resolved. EYES: Ocular movements conjugate. LUNGS: Clear. HEART: S1, S2. Regular rate without murmurs. BACK: No back tenderness. NEURO: Nonfocal. LABORATORY DATA: White cell count 6.1, hemoglobin 10.8, platelets 99,000. Sodium 142, creatinine 0.89. No new microbiology information. DIAGNOSTIC DATA: CT of chest with no major findings. ASSESSMENT AND DISCUSSION: Type-2 diabetes, coronary artery disease, and chills with Staph aureus bacteremia of unknown primary site. Pending MIGUEL. If MIGUEL is negative, then discharge on IV cefazolin for 4 weeks through a PICC line; positive, then 6 weeks, same drug. Job ID: [id number]
[2018-12-13] MEDS: Ondansetron PF 4 MG/2 ML Vial SLOW IVP PRN (15:22)
[2018-12-13] MEDS: HumaLOG 300 UNITS/3 ML VIAL SC PRN ×2 (16:37→21:01)
[2018-12-13] MEDS ORDERED: Promethazine HCl 25 MG/ML VIAL IM/IV PRN (17:31)
[2018-12-13] MEDS ORDERED: Promethazine 25 MG TAB PO PRN (17:31)
[2018-12-13] MEDS ORDERED: hydrALAZINE 20 MG/ML VIAL SLOW IVP PRN (17:32)
[2018-12-13] MEDS: Rosuvastatin 20 MG TAB PO SCH (20:01)
[2018-12-14] MEDS: CEFAZOLIN 2 GM in Premix Bag 1 BAG IVPB SCH ×2 (00:27→07:55)
[2018-12-14] MEDS: Levothyroxine Sodium 50 MCG TAB PO SCH (06:12)
[2018-12-14] MEDS: Metoprolol Tartrate 50 MG TAB PO SCH (06:12)
--- NOTE | 2018-12-14 06:21 | PDOC.FM ---
- Subjective Subjective: Pleasant 68 yo female seen at bedside this AM. Patient reports she had a good night. She states that all of her wrist pain is now gone. She was unable to complete her MIGUEL or PICC placement yesterday due to OR staffing issues. She is looking forward to going home. No other complaints today. - Objective Vital Signs & Weight: Vital Signs (12 hours) Temp Pulse Resp BP Pulse Ox 12/14/18 04:00 98.2 F 77 20 144/74 H 93 L 12/14/18 00:00 98.9 F 73 20 175/78 H 92 L 12/13/18 20:00 97 12/13/18 19:53 98.7 F 78 20 147/78 H 97 Weight Weight 104 kg I&O: 12/12/18 12/13/18 12/14/18 06:59 06:59 06:59 Intake Total 950 580 Output Total 1050 Balance -100 580 Result Diagrams: 12/12/18 07:02 12/13/18 07:51 Phys Exam - Physical Examination Constitutional: NAD HEENT: moist MMs Respiratory: no wheezing, clear to auscultation bilateral Cardiovascular: RRR, no significant murmur Gastrointestinal: soft, non-tender, no distention, positive bowel sounds Musculoskeletal: no edema, pulses present Wrist redness improved from previous Neurological: non-focal, moves all 4 limbs Psychiatric: normal affect, A&O x 3 Skin: no rash Dx/Plan (1) Bacteremia Code(s): R78.81 - BACTEREMIA Status: Acute (2) Elevated uric acid in blood Code(s): E79.0 - HYPERURICEMIA W/O SIGNS OF INFLAM ARTHRIT AND TOPHACEOUS DIS Status: Acute (3) Anxiety Code(s): F41.9 - ANXIETY DISORDER, UNSPECIFIED Status: Acute (4) HLD (hyperlipidemia) Code(s): E78.5 - HYPERLIPIDEMIA, UNSPECIFIED Status: Chronic (5) HTN (hypertension) Code(s): I10 - ESSENTIAL (PRIMARY) HYPERTENSION Status: Chronic (6) Hypothyroid Code(s): E03.9 - HYPOTHYROIDISM, UNSPECIFIED Status: Chronic (7) T2DM (type 2 diabetes mellitus) Status: Chronic (8) Gout Code(s): M10.9 - GOUT, UNSPECIFIED Status: Acute - Plan Plan: Bacteremia with unknown source - Afebrile, no leukocytosis, - Blood cxs Gram + cocci 2/ bottles - D/C Vancomycin and switched to Cefazolin 12/12 - Left wrist XR and US unremarkable - Chest CT unremarkable - Echo EF 55-60% and no vegetations noted. MIGUEL pushed back to today 12/14 - Elevated ESR and CRP measured 12/11 - Consulted Dr. Morejon, appreciate recommendations - Cefazolin as outpatient. - Monitor for septic arthritis vs Gout Wrist Pain - Will consider Gout etiology - Uric acid mildly elevated to 6.6 - Will treat with Indomethacin - Improved Insulin dependent DMII - Continue home meds - Moderate SSI - ACHS accuchecks - Patient will likely need change to regimen as outpatient Anxiety - Continue home meds HLD - Continue home meds HTN - Continue home meds Hypothyroid - Continue home meds Disposition: Stable, will continue current plan of care. If MIGUEL negative 4 weeks Cefazolin as outpatient. If MIGUEL positive 6 weeks Cefazolin as outpatient. Pending Case Management, patient is ready for discharge today. Addendum - Attending - Attending Attestation Date/Time: 12/14/18 1014 I personally evaluated the patient and discussed the management with Dr. Lopez. I agree with the History, Examination, Assessment and Plan documented above with any addition or exceptions noted below. Stable for discharge and further treatment of bacteremia as outpatient.
[2018-12-14] MEDS: Amlodipine 5 MG TAB PO SCH (07:56)
[2018-12-14] MEDS: Oxybutynin ER 5 MG TAB PO SCH (07:57)
[2018-12-14] MEDS: Indomethacin 25 mg Capsule PO SCH ×2 (07:59→15:10)
[2018-12-14] MEDS: Lisinopril 20 MG TAB PO SCH (07:59)
[2018-12-14] MEDS: Insulin Glargine 15 UNITS in Pre-Filled Syringe 1 EACH SC SCH (08:05)
[2018-12-14] MEDS ORDERED: PROPOFOL 200 MG/20 ML VIAL ONE (12:18)
[2018-12-14 12:41] VITALS: BP 158/81; TEMP 98.4
[2018-12-14] MEDS ORDERED: cefTRIAXone\\ROCEPHIN 2 GM in Sodium Chloride 0.9% 100 ML IVPB SCH (13:00)
[2018-12-14] MEDS ORDERED: PROPOFOL 40 ML ONE (13:41)
--- NOTE | 2018-12-14 14:35 | SPC ---
ULTRASOUND AND FLUOROSCOPIC GUIDED PICC LINE PLACEMENT: HISTORY: Sepsis. Need for long-term IV access. COMPARISON: None. FINDINGS: The patient is brought to the special suite. All questions were answered. Informed consent was obta ined. A time out was performed. The patient's left arm was prepped and draped in the normal sterile fashion. Using ultrasound MyDocTimean ce, the left cephalic vein was accessed after local anesthesia was given with 1 mL of Lidocaine. Ove r a wire and through a peel-away sheath, a 53 cm PICC was placed. The patient tolerated the procedur e well without complication. FLUOROSCOPY TIME: 0.5 minutes. DOSE AREA PRODUCT: [id number] mGy per cm2. IMPRESSION: Technically successful ultrasound and fluoroscopy guided peripherally inserted central catheter line placement. POS: TYSON
--- NOTE | 2018-12-14 15:46 | PRG ---
DATE OF SERVICE: 12/14/2018 SUBJECTIVE: The patient had the MIGUEL. The report is still pending at this time. No headaches. No abdominal pain or diarrhea. No genitourinary symptoms. No back pain. OBJECTIVE: VITAL SIGNS: Normal except for slight elevation of systolic blood pressure. LUNGS: Clear. HEART: S1 and S2. Regular rate. ABDOMEN: Soft, not distended or tender. No ascites. No bladder distention. LABORATORY DATA: White cell count 6.1, hemoglobin 10.8, and platelets 99,000. Creatinine 0.89. Microbiology as noted previously. ASSESSMENT AND DISCUSSION: Type 2 diabetes, coronary artery disease, and Staphylococcus aureus bacteremia. Pending transesophageal echocardiogram report. The patient will be discharged, to be continued on cefazolin in the outpatient setting for 4 to 6 weeks depending on transesophageal echocardiogram report results. Job ID: [id number]
--- NOTE | 2018-12-15 17:34 | ECHO ---
DATE OF PROCEDURE: 12/14/18 DATE OF ADMISSION: 12/11/18 INDICATION FOR PROCEDURE: 68-year-old female with unexplained bacteremia. She was advised to undergo a transesophageal echocard iogram. She was taken to the recovery area where she underwent short acting propofol without difficulties or complications. A transesophageal probe was passed down the distal esophagus. The impressions on the echocardiogram are as follows 1. No evidence of intracardiac thrombi or masses. No evidence of valvular vegetations. 2. Normal left ventricular systolic function. 3. Normal valvular structures. 4. What appears to be mild to moderate mitral valve regurgitation. 5. Mild to moderate tricuspid regurgitation. 6. Trivial aortic valve regurgitation. No difficulties or complications were encountered.
--- NOTE | 2018-12-17 08:08 | DIS ---
DATE OF ADMISSION: 12/11/2018 DATE OF DISCHARGE: 12/14/2018 RESIDENT: Cezar Lopez MD ADMITTING ATTENDING: Gabrielle Friedman MD DISCHARGE ATTENDING: Gabrielle Friedman MD CONSULTATIONS: 1. Case Management. 2. Infectious Disease, Dr. Morejon. 3. Rehab program. 4. Walking program. PROCEDURES: 1. On 12/11/2018, the patient underwent a wrist x-ray that showed no acute osseous abnormality, diffuse osteopenia. 2. On 12/11/2018, the patient underwent a soft tissue ultrasound that showed large joint effusion seen within the wrist carpal joints. No tissue abnormality grossly evident. 3. On 12/12/2018, the patient underwent a chest CT that showed massive left lower lobe subsegmental volume loss. No consolidations, pleural fluid, or pneumothorax is evident. 4. On 12/11/2018, the patient underwent a transthoracic echocardiogram that showed left ventricle size is normal. EF is visually estimated at 55% to 60%. Left after atrium is mildly dilated. Trace mitral regurgitation is present. Mitral annular calcification noted. Structurally normal aortic valve with no significant stenosis or regurgitation. Hbfyjxiw-oe-owncfn tricuspid regurgitation. Severely elevated pulmonary artery pressure. 5. On 12/14/2018, the patient underwent a transesophageal echocardiogram that showed no evidence of intracardiac thrombi or masses. No evidence of valvular vegetations. Normal left ventricular systolic function. Normal valvular structures. Rkea-dl-hduyfmhc mitral valve regurgitation. Hcei-sf-ecrgcxrw tricuspid regurgitation. Trivial aortic valve regurgitation. PRIMARY DIAGNOSES: 1. Methicillin-susceptible Staphylococcus aureus bacteremia with unknown source. 2. Elevated uric acid. SECONDARY DIAGNOSES: 1. Type 2 diabetes, uncontrolled. 2. Anxiety. 3. Hyperlipidemia. 4. Hypertension. 5. Hypothyroidism. DISCHARGE MEDICATIONS: 1. Vascepa 2 g p.o. daily. 2. Glimepiride 8 mg p.o. q.a.m. with meals. 3. Trulicity 0.75 mg subcu q.7 days. 4. Synthroid 50 mcg p.o. daily. 5. Metformin 500 mg p.o. b.i.d. with meals. 6. Lorazepam 1 mg p.o. p.r.n. 7. Lisinopril 20 mg p.o. daily. 8. Saxagliptin 5 mg p.o. daily. 9. Pioglitazone 45 mg p.o. daily. 10. Oxybutynin 10 mg p.o. daily. 11. Metoprolol tartrate 100 mg p.o. daily. 12. Vitamin D3 of 4000 units p.o. daily. 13. Amlodipine 5 mg p.o. daily. 14. Rosuvastatin 20 mg p.o. daily. 15. Aspirin 81 mg p.o. daily. 16. Insulin Lantus 30 units subcu daily. 17. Acetaminophen 650 mg p.o. q.4 hours. 18. Indomethacin 50 mg p.o. as directed, #10. 19. Nitroglycerin 0.4 mg sublingually q.5 minutes. 20. Rocephin 2 g q.24 hours. DISCONTINUED MEDICATIONS: None. HISTORY OF PRESENT ILLNESS/HOSPITAL COURSE: The patient is a 68-year-old female with past medical history of type 2 diabetes, hypertension, hyperlipidemia and anxiety, presents to the ED because she received a call reporting that she had positive blood cultures overnight. The patient was to come to [facility] Emergency Department. The patient presented to [facility] ED for weakness on 12/09, that started a few days prior. The patient was having URI symptoms for the last 2 weeks. Blood cultures were drawn at that time and she was discharged home. The patient did receive an antibiotic shot of Rocephin in her PCPs office, Dr. Cheema. The patient then received a call at 0100 to come to the emergency department. The patient denied any recent traveling, activities or food. However, she does complain of some left wrist tenderness and pain. During this hospitalization, the patient did remain afebrile during her entire stay. She did have a couple episodes of nausea and vomiting that is associated with some high elevated blood pressures. However, when she was able to tolerate her blood pressure medicine, her blood pressure seemed to be well controlled. White blood cell count was not elevated. It was 5.0 on the day of admission, trended to 6.1 and was not rechecked. The patient did have a platelet count of 76, that increased to 99. Her glucose did show that she would be very poorly controlled diabetic with all glucose ranges up in the 200 to 300s, and her urine did not show any infectious cause. It however did show trace amount of ketones, small amount of bilirubin, small amount of leukocyte esterase with no bacteria seen. Due to the fact that she had MSSA bacteremia that was herndon sensitive, Dr. Morejon of Infectious Disease was consulted at that time for further management of outpatient antibiotics. The patient was deemed to have cefazolin treatment as an outpatient as that is standard of care. However, antibiotics given and able to go home in a timely manner, the patient was discharged on Rocephin 2 g q.24 hours until Monday when her other antibiotics would be available to her. The patient otherwise with the initiation of indomethacin for her likely gout attack, her wrist pain and erythema did improve. The patient did not have any other complications during this hospitalization. She did receive a PICC line on the day of discharge for her outpatient antibiotics and will continue those outpatient antibiotics for [address] Morejon recommendations. Otherwise, the patient tolerated the hospitalization well and was discharged in appropriate condition. DISPOSITION: Stable. DISCHARGE INSTRUCTIONS: 1. Location: She will be discharged home in the care of herself and her family. 2. Diet: As tolerated with a diabetic heart healthy diet. 3. Activity: As tolerated with no restrictions. 4. Followup: Follow up with [facility] daily so she can be in Dr. Morejon, Infectious Disease, in 7 days to discuss her further bacteremia, and then her primary care provider Dr. Cheema in the next 3 days to further discuss her chronic conditions as well as her recent MSSA bacteremia. Thank you very much. Job ID: [id number] [facility]
== END 2018-12-14 17:03 | disposition home or self-care (01) | DRG 872 ==
LOC: ERS 01:51 → ERHOLD 02:40 → OBSVTOIN 11:01 → 3SE 11:03 → T4-A 12-13 02:28
PROVIDERS: ADMIT Emergency Medicine; ATTEND Emergency Medicine
PROC: B246ZZ4 Ultrasonography of Right and Left Heart, Transesophageal (ICD-10-PCS; principal; 2018-12-11)
DX: R78.81 Bacteremia (principal); B95.62 Methicillin resistant Staphylococcus aureus infection as the cause of diseases classified elsewhere; E11.65 Type 2 diabetes mellitus with hyperglycemia; F41.9 Anxiety disorder, unspecified; E78.00 Pure hypercholesterolemia, unspecified; E03.9 Hypothyroidism, unspecified; I10 Essential (primary) hypertension; M25.539 Pain in unspecified wrist; I25.10 Atherosclerotic heart disease of native coronary artery without angina pectoris; M10.9 Gout, unspecified; I07.1 Rheumatic tricuspid insufficiency
CPT/HCPCS: 36415; 36416; 36569; 51701; 70450; 71045; 71250; 76999; 80048; 80053; 81003; 81015; 83605; 84443; 84484; 84550; 85025; 85652; 86140; 87040; 87077; 87086; 87149; 87186; 87804; 93306; 93312; 96360; 96365; 96366; 96367; A4353; C1751; J0692; J0696; J1825; J2405; J2550; J2704; J3370; J3490; J7050

== ENCOUNTER 2019-07-08 13:41 | Outpatient (CLI) | payer MEDICARE ==
--- NOTE | 2019-07-08 14:12 | MMO ---
Bilateral MAMMO Bilat Screen [facility]. CLINICAL HISTORY: Patient is 69 years old and is seen for screening. The patient has no family history of breast cancer. The patient has no personal history of cancer. The patient has a history of bilateral Breast reduction in 1987. VIEWS: The views performed were: bilateral craniocaudal with tomosynthesis and bilateral mediolateral oblique with tomosynthesis. FILMS COMPARED: The present examination has been compared to prior imaging studies performed at [facility] on 05/01/2015, 05/20/2016, 06/16/2017 and 07/04/2018. This study has been interpreted with the assistance of computer-aided detection. MAMMOGRAM FINDINGS: There are scattered fibroglandular densities. Finding 1: There are stable benign appearing calcifications seen in both breasts. Finding 2: There is a stable round mass with circumscribed margins seen in the right breast. There are no suspicious masses, suspicious calcifications, or new areas of architectural distortion. IMPRESSION: THERE IS NO MAMMOGRAPHIC EVIDENCE OF MALIGNANCY. A ROUTINE FOLLOW-UP MAMMOGRAM IN 1 YEAR IS RECOMMENDED. THE RESULTS OF THIS EXAM WERE SENT TO THE PATIENT. ACR BI-RADS Category 2 - Benign finding MAMMOGRAPHY NOTE: 1. A negative mammogram report should not delay a biopsy if a dominant of clinically suspicious mass is present. 2. Approximately 10% to 15% of breast cancers are not detected by mammography. 3. Adenosis and dense breasts may obscure an underlying neoplasm. Reported by: SABINA ISRAEL MD Electonically Signed: [id number]
== END 2019-07-08 13:42 | disposition home or self-care (01) ==
LOC: BICMAMMO 13:41
PROVIDERS: ATTEND Family Medicine
DX: Z12.31 Encounter for screening mammogram for malignant neoplasm of breast (principal)
CPT/HCPCS: 77063; 77067

== ENCOUNTER 2020-08-26 12:11 | Outpatient (CLI) | payer MEDICARE ==
--- NOTE | 2020-08-26 16:23 | MMO ---
Bilateral MAMMO Bilat Screen [facility]. CLINICAL HISTORY: Patient is 70 years old and is seen for screening. The patient has no family history of breast cancer. The patient has no personal history of cancer. The patient has a history of bilateral Breast reduction in 1987. VIEWS: The views performed were: bilateral craniocaudal with tomosynthesis and bilateral mediolateral oblique with tomosynthesis. FILMS COMPARED: The present examination has been compared to prior imaging studies performed at [facility] on 05/20/2016, 06/16/2017, 07/04/2018 and 07/08/2019. This study has been interpreted with the assistance of computer-aided detection. MAMMOGRAM FINDINGS: There are scattered fibroglandular densities. Benign calcifications are noted bilaterally. There are no suspicious masses, suspicious calcifications, or new areas of architectural distortion. IMPRESSION: THERE IS NO MAMMOGRAPHIC EVIDENCE OF MALIGNANCY. A ROUTINE FOLLOW-UP MAMMOGRAM IN 1 YEAR IS RECOMMENDED. THE RESULTS OF THIS EXAM WERE SENT TO THE PATIENT. ACR BI-RADS Category 2 - Benign finding MAMMOGRAPHY NOTE: 1. A negative mammogram report should not delay a biopsy if a dominant of clinically suspicious mass is present. 2. Approximately 10% to 15% of breast cancers are not detected by mammography. 3. Adenosis and dense breasts may obscure an underlying neoplasm. Reported by: GIUSEPPE LOPEZ MD Electonically Signed: [id number]
== END 2020-08-26 12:12 | disposition home or self-care (01) ==
LOC: BICMAMMO 12:11
PROVIDERS: ATTEND Family Medicine
DX: Z12.31 Encounter for screening mammogram for malignant neoplasm of breast (principal); Z98.890 Other specified postprocedural states
CPT/HCPCS: 77063; 77067

== ENCOUNTER 2020-10-18 14:56 | Observation (INO) | payer MEDICARE ==
[2020-10-18 15:31] LABS: #Basophils 0.1 thou/uL (0.0-0.2); #Eosinphils 0.1 thou/uL (0.0-0.7); #Lymphocytes 1.9 thou/uL (1.20-3.40); #Monocytes 0.4 thou/uL (0.11-0.59); #Neutrophils 4.8 thou/uL (1.40-6.50); %Basophils 0.8 % (0.0-1.0); %Lymphocytes 26.1 % (21.0-51.0); %Monocytes 5.8 % (0.0-10.0); %Neutrophils 66.3 % (42.0-75.0); Hemoglobin 13.9 g/dL (12.0-16.0); Mean Corpuscular HGB CONC 33.8 g/dL (32.0-36.0); Mean Corpuscular Hemoglobin 29.2 pg (27.0-31.0); Mean Corpuscular Volume 86.3 fL (78.0-98.0); Mean Platelet Volume 7.5 fL (7.4-10.4); Platelet Count 166 thou/uL (130-400); RBC Distribution Width 12.6 % (11.5-14.5); Red Blood Cell (RBC) Count 4.75 mill/uL (4.20-5.40); White Blood Cell (WBC) Count 7.2 thou/uL (4.8-10.8)
[2020-10-18 15:39] LABS: Bilirubin Negative (Negative); Blood, Urine Negative (Negative); Clarity Clear (Clear); Glucose, Urine (Dipstick) 30 mg/dL (Negative); Ketone, Urine Negative (Negative); Leukocyte Negative Leu/uL (Negative); Nitrite Negative (Negative); Protein, Urine (Dipstick) Negative (Neg-Trace); Urobilinogen Normal mg/dL (Less than 2); pH, Urine 6.5 (5.0-9.0)
--- NOTE | 2020-10-18 15:47 | RAD ---
PORTABLE CHEST: Date: 10-18-2020 PROVIDED CLINICAL HISTORY: Chest pain FINDINGS: Comparison 12-09-. The cardiac silhouette and mediastinal silhouette are unchanged in appearance. No focal consolidation , pleural fluid, or pneumothorax apparent. IMPRESSION: No evidence for an acute cardiopulmonary process. POS: SAE
[2020-10-18 15:52] LABS: ALT (SGPT) 11 U/L (8-55); AST (SGOT) 14 U/L (5-34); Alkaline Phosphatase 83 U/L (40-110); Anion Gap 16 mmol/L (10-20); BUN (Urea Nitrogen) 23 mg/dL (9.8-20.1); Bilirubin, Total 0.6 mg/dL (0.2-1.2); Calc. Creatinine Clearance 0 mL/min (70-130); Calcium 9.8 mg/dL (7.8-10.44); Carbon Dioxide 28 mmol/L (23-31); Chloride 102 mmol/L (98-107); Globulin 2.9 g/dL (2.4-3.5); Glucose 241 mg/dL (80-115); Potassium 3.7 mmol/L (3.5-5.1); Protein, Total 6.9 g/dL (5.8-8.1); Sodium 142 mmol/L (136-145)
--- NOTE | 2020-10-18 16:01 | CT ---
CT BRAIN: Date: 10-18-2020 PROVIDED CLINICAL HISTORY: Intermittent dizziness FINDINGS: Comparison is made with 12-10-2018. The ventricular system appears normal in size and morphology. There is no evidence for intracranial h emorrhage or mass effect. Stable extraaxial mass involving the frontal region near the midline at the vertex. The extracranial soft tissues and osseous structures demonstrate an unremarkable CT appearan ce. IMPRESSION: No evidence for intracranial hemorrhage or mass effect. POS: SAE
[2020-10-18] MEDS ORDERED: cefTRIAXone\\ROCEPHIN 1 GM VIAL ONE (17:29)
[2020-10-18] MEDS ORDERED: cefTRIAXone\\ROCEPHIN 1 GM in Sodium Chloride 0.9% 100 ML IVPB SCH (17:30)
[2020-10-18 17:40] LABS: SARS-CoV-2 NAA Rapid Test Not Detected (NotDetected)
--- NOTE | 2020-10-18 17:53 | ULT ---
RIGHT UPPER QUADRANT ULTRASOUND: Date: 10-18-2020 PROVIDED CLINICAL HISTORY: Abdominal pain. FINDINGS: The pancreas is obscured. The liver demonstrates no mass or intrahepatic biliary ductal dilatation. T he IVC appears normal. The gallbladder demonstrates an echogenic non-shadowing focus adherent to the gallbladder wall compatible with polyp measuring approximately 5 mm. No stones, wall thickening or pe richolecystic fluid. The common duct is not dilated. Right kidney demonstrates no evidence for hydron ephrosis. There is a 2 cm circumscribed focus of diminished echogenicity involving the posterior aspe ct of the right kidney in the midportion, not completely anechoic and not definitely a cyst on the ba sis of this study. IMPRESSION: 1. No evidence for gallstones or acute findings related to the gallbladder. 2. 5 mm gallbladder wall polyp. 3. Possible 2 cm right renal mass. Correlation with non-emergent follow up CT utilizing renal ma ss protocol recommended. POS: SAE
[2020-10-18 19:28] LABS: Troponin I Less than 0.010 ng/mL (< 0.028)
--- NOTE | 2020-10-18 22:02 | PDOC.FPRHP ---
- History of Present Illness Chief Complaint: malaise History of Present Illness: Pt is a 70yo female with hx of DM2, HTN, hypothyroidism who presents with malaise for 7 days. She states she has also been experiencing some light- headedness, worse in the afternoon. She has decreased energy and has been sleeping more. She denies any fever, CP, SOB, N/V/D, sick contacts. She says she decided to come to the ED because she had similar presentation in 2019 and she was found to have MSSA bacteremia. She saw her PCP this month. No new changes in medications ED Course: vancomycin, rocephin - Allergies/Adverse Reactions Allergies Allergy/AdvReac Type Severity Reaction Status Date / Time No Known Allergies Allergy Verified 12/14/19 13:18 - Home Medications Medication Instructions Recorded Confirmed Type Amlodipine [Norvasc] 5 mg PO DAILY 12/11/18 10/19/20 History Aspirin [Lo-Dose Aspirin EC] 81 mg PO DAILY 12/11/18 10/19/20 History Cholecalciferol (Vitamin D3) 4,000 units PO DAILY 12/11/18 10/19/20 History [Vitamin D3] Dulaglutide [Trulicity] 0.75 mg SC Q7D 12/11/18 10/19/20 History Insulin Glargine,Hum.Rec.Anlog 30 units SQ DAILY 12/11/18 10/19/20 History [Lantus] Metoprolol Tartrate 50 mg PO DAILY 12/11/18 10/19/20 History Oxybutynin Chloride [Oxybutynin 10 mg PO DAILY 12/11/18 10/19/20 History Chloride ER] Pioglitazone HCl 15 mg PO DAILY 12/11/18 10/19/20 History Rosuvastatin [Crestor] 20 mg PO DAILY 12/11/18 10/19/20 History Saxagliptin HCl [Onglyza] 5 mg PO DAILY 12/11/18 10/19/20 History Nitroglycerin [Nitrostat] 0.4 mg SL Q5MIN PRN tab 12/14/18 10/19/20 Rx Clopidogrel Bisulfate [Clopidogrel] 1 tab PO DAILY 10/19/20 10/19/20 History Levothyroxine Sodium [Synthroid] 25 mcg PO 0600 30 Days #30 tab 10/19/20 Rx Lisinopril/Hydrochlorothiazide 1 tab PO DAILY 10/19/20 10/19/20 History [Lisinopril-Hctz 20-25 mg Tab] metFORMIN [Glucophage] 500 mg PO BID-WM tab 10/19/20 Rx - History PMHx: HTN, DM2, HLD, hypothyroidism, anxiety PSHx: LAD drug eluding stent place 04/15/18, hysterectomy, appendectomy, tonsi llectomy, ocular lens implant, breast reduction FHx: adopted Social: no T/A/D - Review of Systems General: reports: fatigue. denies: fever/chills Eyes: denies: vision changes ENT: denies: nasal congestion Respiratory: denies: cough, shortness of breath Cardiovascular: denies: chest pain, palpitation Gastrointestinal: denies: nausea, vomiting, diarrhea Genitourinary: denies: dysuria Skin: denies: rashes Musculoskeletal: denies: pain, arthritis/arthralgias Neurological: denies: numbness, weakness - Vital signs BP: 152/78, Pulse: 55, Resp: 18, Temp: 98.7 (Oral), O2 sat: 100 on (Room Air) - Physical Exam Constitutional: NAD, awake, alert and oriented HEENT: normocephalic and atraumatic, no scleral icterus, grossly normal vision, grossly normal hearing Neck: supple, FROM Chest: no-tender to palpation Heart: RRR, normal S1/S2, no murmurs/rubs/gallops Lungs: CTAB, no respiratory distress, no wheezing Abdomen: soft, non-tender Musculoskeletal: normal structure, normal tone, ROM grossly normal Neurological: no focal deficit, CN II-XII intact Skin: no rash/lesions, no jaundice Heme/Lymphatic: no unusual bruising or bleeding Psychiatric: normal mood and affect, good judgment and insight, intact recent and remote memory FMR H&P: Results - Labs Result Diagrams: 10/18/20 15:15 10/19/20 07:25 Lab results: WBC 7.2 thou/uL (4.8-10.8) 10/18/20 15:15 Hgb 13.9 g/dL (12.0-16.0) 10/18/20 15:15 Hct 41.0 % (36.0-47.0) 10/18/20 15:15 MCV 86.3 fL (78.0-98.0) 10/18/20 15:15 Plt Count 166 thou/uL (130-400) 10/18/20 15:15 Neutrophils % 66.3 % (42.0-75.0) 10/18/20 15:15 Sodium 142 mmol/L (136-145) 10/18/20 15:15 Potassium 3.7 mmol/L (3.5-5.1) 10/18/20 15:15 Chloride 102 mmol/L (98-107) 10/18/20 15:15 Carbon Dioxide 28 mmol/L (23-31) 10/18/20 15:15 BUN 23 mg/dL (9.8-20.1) H 10/18/20 15:15 Creatinine 1.24 mg/dL (0.6-1.1) H 10/18/20 15:15 Glucose 241 mg/dL (80-115) H 10/18/20 15:15 Lactic Acid 1.3 mmol/L (0.5-2.2) 10/18/20 17:35 Calcium 9.8 mg/dL (7.8-10.44) 10/18/20 15:15 Total Bilirubin 0.6 mg/dL (0.2-1.2) 10/18/20 15:15 AST 14 U/L (5-34) 10/18/20 15:15 ALT 11 U/L (8-55) 10/18/20 15:15 Alkaline Phosphatase 83 U/L (40-110) 10/18/20 15:15 Serum Total Protein 6.9 g/dL (5.8-8.1) 10/18/20 15:15 Albumin 4.0 g/dL (3.4-4.8) 10/18/20 15:15 Urine Ketones Negative mg/dL (Negative) 10/18/20 15:07 Urine Blood Negative (Negative) 10/18/20 15:07 Urine Nitrite Negative (Negative) 10/18/20 15:07 Ur Leukocyte Esterase Negative Jordan/uL (Negative) 10/18/20 15:07 - EKG Interpretation EKG: reviewed, normal sinus rhythm - Radiology Interpretation Chest x-ray Status: report reviewed by mi FMR H&P: A/P - Plan #Malaise -VS wnl and stable, CBC wnl, trop neg x3, lactic acid 1.3, UA neg, COVID/Flu neg -CXR: no acute process -Brain CT: unremarkable -etiology unclear but possible viral illness -pending BCx. Hx of MSSA bacteremia in 2019. If pt discharges before the cultures result, we will call her with results. -s/p rocephin and vanc in ED. Due to limited evidence of infection, will not con tinue at this time. #MOHIT vs CKD -BUN/Cr -last documented Cr was 0.89 in 2019 -will encourage increased po intake and avoid nephrotoxic medications -recheck in am #Hypothyroidism -pending TSH -continue home meds #DM2 -continue home meds -accuchecks ACHS -mild SSI #HTN -continue home meds Code: Full PCP: Anette DVT Ppx: lovenox Dispo: Admit to tele obs, stable, will monitor overnight, LOS<48hrs FMR H&P: Upper Level - Plan Date/Time: 10/18/202201 I, Selma Lee, have evaluated this patient and agree with findings/plan as o utlined by international recruiter resident. Pertinent changes/additions are listed here. 70 yo F with PMH IDDM2, HTN, CAD s/p stent 2018 presents to ED for a couple day history of afternoon fatigue and lightheadedness. Denies SOB, cough, fever, dysuria, syncope, orthostatic symptoms, myalgias, nausea, vomiting. She remembers feeling this way when she was previously found to be bacteremic with unknown source that required IV abx for 1 month and wanted to get checked out. She had negative CXR, negative brain CT, UA neg, flu neg, covid neg. She was given vanc and rocephin. PE: Gen: NAD HEENT: Moist MM Heart: RRR, no murmurs. Normal cap refill Lungs: CTAB, no wheezing. No increased work of breathing. Abd: soft, nontender, ND, BS+ Ext: nonpitting edema BLE Patient was initially going to be discharged for a short stay, but ended up staying overnight for continued monitoring. Considering no signs or symptoms of infection, no white count, vitals stable, afebrile, will not continue antibiotics at this time. Cultures are pending and will follow up on these. May have MOHIT vs worsened CKD as last one in chart was a year ago -no change in PO intake. Troponins trended negative. Abd US in ED showed incidental finding of possible 2cm R renal mass that needs nonemergent follow up CT. This can be done outpatient. Code: FULL Prophylaxis: Lovenox Fluids: SL Diet: CC/HH PCP: Anette Attending: Partha Disposition: Admit to telemetry for observation, patient can likely be discharged tomorrow morning. She has good follow up with Dr. Cheema, PCP. Will need CT outpatient to follow up incidental renal finding. Addendum - Attending - Attending Attestation Date/Time: 10/19/202033 I personally evaluated the patient and discussed the management with Dr. Vital. I agree with the History, Examination, Assessment and Plan documented above with any addition or exceptions noted below.
[2020-10-18] MEDS ORDERED: Ondansetron PF 4 MG/2 ML Vial IVP PRN (22:16)
[2020-10-18] MEDS ORDERED: HumaLOG 300 UNITS/3 ML VIAL SC PRN ×2 (22:16)
[2020-10-18] MEDS ORDERED: Ondansetron ODT 4 MG TAB PO PRN (22:16)
[2020-10-18] MEDS ORDERED: Dextrose 5% in Water 1,000 ML IV PRN (22:16)
[2020-10-18] MEDS ORDERED: Acetaminophen 325 MG TAB PO PRN (22:16)
[2020-10-18] MEDS ORDERED: Dextrose 50% Abboject 50 ML SYRINGE SLOW IVP PRN (22:16)
[2020-10-18 22:54] LABS: Troponin I Less than 0.010 ng/mL (< 0.028)
[2020-10-19] MEDS ORDERED: Levothyroxine Sodium 50 MCG TAB PO SCH (06:00)
--- NOTE | 2020-10-19 07:03 | PDOC.FM ---
- Subjective Subjective: Pt says she is ready to go home. She say she does feel lightheaded from time to time, but never dizzy. Denies palpitations. - Objective MAR Reviewed: Yes Vital Signs & Weight: HR: 55-64 RR: 15-19 O2: 95-100 on RA T: 98.1-98.7 BP: 132/65-164/62 Result Diagrams: 10/18/20 15:15 10/19/20 07:25 EKG Reviewed by me: Yes (SR-SB, HR 50-60s) Phys Exam - Physical Examination Constitutional: NAD HEENT: moist MMs, sclera anicteric Neck: supple Respiratory: no wheezing, no rales, no rhonchi, clear to auscultation bilateral Cardiovascular: RRR, no significant murmur Gastrointestinal: soft, non-tender, positive bowel sounds Musculoskeletal: no edema, pulses present Neurological: moves all 4 limbs normal gait Lymphatic: no nodes Psychiatric: normal affect, A&O x 3 Skin: no rash, normal turgor Dx/Plan (1) Fatigue Code(s): R53.83 - OTHER FATIGUE Status: Acute (2) MOHIT (acute kidney injury) Code(s): N17.9 - ACUTE KIDNEY FAILURE, UNSPECIFIED Status: Acute (3) Hypothyroid Code(s): E03.9 - HYPOTHYROIDISM, UNSPECIFIED Status: Chronic (4) HTN (hypertension) Code(s): I10 - ESSENTIAL (PRIMARY) HYPERTENSION Status: Chronic (5) T2DM (type 2 diabetes mellitus) Status: Chronic - Plan Plan: Pt is a 70 yo female with hx of DM2, HTN, hypothyroidism who presents with malaise for 7 days. 1.Malaise -VS wnl and stable, CBC wnl, trop neg x3, lactic acid 1.3, UA neg, COVID/Flu neg -CXR: no acute process -Brain CT: unremarkable -etiology unclear but possible viral illness -NGTD BCx. UCx pending. Hx of MSSA bacteremia in 2019. If pt discharges before the cultures result, we will call her with results. -s/p rocephin and vanc in ED. Due to limited evidence of infection, will not continue at this time. 2. MOHIT vs CKD, Resolved -BUN/Cr: 18/0.94 -last documented Cr was 0.89 in 2019 -will encourage increased po intake and avoid nephrotoxic medications 3. Hypothyroidism TSH: 0.2814 -Decrease Synthroid from 50 to 25 daily. 4. DM2 -continue home meds -accuchecks ACHS -mild SSI 5. HTN -continue home meds Code: Full PCP: Anette DVT Ppx: lovenox Dispo: Tele Obs, LOS<48H. Will d/c today, since preliminary blood culture is negative. Addendum - Attending - Attending Attestation Date/Time: 10/19/20 1030 I personally evaluated the patient and discussed the management with Dr. Blanc. I agree with the History, Examination, Assessment and Plan documented above with any addition or exceptions noted below.
[2020-10-19 08:20] LABS: Anion Gap 14 mmol/L (10-20); BUN (Urea Nitrogen) 18 mg/dL (9.8-20.1); Calc. Creatinine Clearance 0 mL/min (70-130); Calcium 9.4 mg/dL (7.8-10.44); Carbon Dioxide 27 mmol/L (23-31); Chloride 103 mmol/L (98-107); Glucose 192 mg/dL (80-115); Potassium 3.4 mmol/L (3.5-5.1); Sodium 141 mmol/L (136-145)
[2020-10-19] MEDS ORDERED: Enoxaparin Sodium 40 MG/0.4 ML SYRINGE SC SCH (09:00)
[2020-10-19] MEDS ORDERED: Clopidogrel Bisulfate 75 MG TAB PO SCH (09:00)
[2020-10-19] MEDS ORDERED: Aspirin 81 mg Enteric Coated Tablet PO SCH (09:00)
[2020-10-19] MEDS ORDERED: Alogliptin 25 MG TAB PO SCH (09:00)
[2020-10-19] MEDS ORDERED: Rosuvastatin 20 MG TAB PO SCH (09:00)
[2020-10-19] MEDS ORDERED: Lisinopril/Hydrochlorothiazide 20/25 mg Tablet PO SCH (09:00)
[2020-10-19] MEDS ORDERED: Metoprolol Tartrate 50 MG TAB PO SCH (09:00)
[2020-10-19] MEDS ORDERED: Pioglitazone HCl 15 MG TAB PO SCH (09:00)
[2020-10-19] MEDS ORDERED: Amlodipine 5 MG TAB PO SCH (09:00)
[2020-10-19 09:25] VITALS: BP 144/65; TEMP 98.1
[2020-10-19 09:32] VITALS: BMI 41.2
[2020-10-19] MEDS: metFORMIN 500 MG TAB PO SCH ×2 (09:55→09:59)
--- NOTE | 2020-10-20 04:40 | DIS ---
DATE OF ADMISSION: 10/18/2020 DATE OF DISCHARGE: 10/19/2020 CONSULTS: None. PROCEDURES: * Chest x-ray on 10/18/2020, showed no evidence of acute cardiopulmonary process. * Brain CT on 10/18/2020, showed no evidence for intracranial hemorrhage or mass effect. * Abdominal ultrasound 10/18/2020, showed no evidence of gallstones or findings related togallbladder; 12 mm gallbladder wall polyp, possible 2 cm right renal mass. Followup nonemergent with CT renal mass protocol recommended. PRIMARY DIAGNOSIS: 1. Malaise. SECONDARY DIAGNOSIS: 1. Acute kidney injury versus chronic kidney disease. 2. Hypothyroidism. 3. Diabetes, type 2. 4. Hypertension. 5. Possible renal mass. DISCHARGE MEDICATIONS: Continue home medications of, 1. Amlodipine 5 mg daily. 2. Aspirin 81 mg daily. 3. Cholecalciferol 4000 units p.o. daily. 4. Clopidogrel 75 mg daily. 5. Dulaglutide 0.75 mg subcu q.7 days. 6. Lantus 30 units subcu daily. 7. Lisinopril-hydrochlorothiazide 20-25 mg daily. 8. Continue home metformin of 500 b.i.d. 9. Metoprolol 50 mg daily. 10. Nitroglycerin 0.4 mg sublingual q.5 minutes p.r.n. for chest pain. 11. Oxybutynin 10 mg daily. 12. Pioglitazone 15 mg daily. 13. Rosuvastatin 20 mg daily. 14. Saxagliptin 5 mg daily. Change medication of Synthroid from 50 to 25 mcg daily due to low TSH. Discontinued medications: The patient received Rocephin in the ED as well as vancomycin which were discontinued prior to discharge. HISTORY OF PRESENT ILLNESS: The patient is a 70-year-old female with history of diabetes type 2, hypertension, hypothyroidism, who presents for malaise for 7 days. She states she has been experiencing some lightheadedness, worse in the afternoon. She has decreased energy, has been sleeping more. She denies any fever, chest pain, shortness of breath, nausea, vomiting, diarrhea, sick contacts. She said she decided to come to the ED because she had similar presentation in 2019 and was found to have MSSA bacteremia. She saw her PCP this month and had changes on medications. In the ED, she was given vancomycin and Rocephin. Labs were unremarkable. Blood sugar was slightly elevated. TSH, which came back later showed decreased TSH of 0.28. 1. Malaise. * Vital signs within normal limits and stable. * CBC within normal limits. * Strep negative. * Lactic acid 1.3. * UA negative. * Chest x-ray is unremarkable. * Brain CT is unremarkable. * Cultures showed no growth. * History of MSSA bacteremia in 2019. * The patient received a dose of Rocephin and vancomycin in the ED, but will not continue at this time. 2. MOHIT versus CKD, resolved. Cre: 0.94 prior to discharge, baseline 0.89 * BUN and creatinine were slightly elevated on admission. * The patient endorses poor p.o. intake, so we encourage fluids. 3. Hypothyroidism. TSH of 0.285. * Synthroid was at 50, it was just decreased to 25 daily. She needs to follow up with PCP. 4. Diabetes, type 2. Continue home medications. * Accu-Cheks were done before meals and at bedtime with mild sliding scale. 5. Hypertension. Continue home medication. 6. Renal mass. Abdominal ultrasound showed a 2 cm right renal mass, but we should have a nonemergent CT with renal mass protocol to get further detail. DISCHARGE INSTRUCTIONS: 1. Location: Home. 2. Activity: As tolerated. 3. Diet: Consistent with carb. 4. Follow up with Dr. Cheema for possible gallbladder and right renal mass pending CT followup. The patient's Synthroid dosage was changed. TSH should be rechecked in a couple of weeks. Job ID: [id number] MTDD
== END 2020-10-19 11:17 | disposition home or self-care (01) ==
LOC: ERS 14:56 → ERHOLD 18:05 → 3SE 10-19 09:08
PROVIDERS: ADMIT Emergency Medicine; ATTEND Emergency Medicine
DX: R53.81 Other malaise (principal); E03.9 Hypothyroidism, unspecified; E11.9 Type 2 diabetes mellitus without complications; I10 Essential (primary) hypertension; E78.5 Hyperlipidemia, unspecified; F41.9 Anxiety disorder, unspecified; I25.10 Atherosclerotic heart disease of native coronary artery without angina pectoris; K82.4 Cholesterolosis of gallbladder; Z79.02 Long term (current) use of antithrombotics/antiplatelets; Z79.4 Long term (current) use of insulin; Z79.82 Long term (current) use of aspirin; Z79.899 Other long term (current) drug therapy; Z95.5 Presence of coronary angioplasty implant and graft; Z20.822 Contact with and (suspected) exposure to COVID-19
CPT/HCPCS: 0240U; 70450; 71045; 76705; 80048; 80053; 81003; 83605; 84439; 84443; 84484 ×2; 85025; 87040; 87086; 93005; G0378 ×2; 36415; 96365; 96366; 96367; J0696; J3370; J7030

== ENCOUNTER 2020-12-30 07:33 | Outpatient (CLI) | payer MEDICARE ==
[2020-12-30] MEDS ORDERED: Iopamidol-370 76% 500 ML 1 ML ONE (12:05)
== END 2020-12-30 07:34 | disposition home or self-care (01) ==
LOC: BICCT 07:33
PROVIDERS: ATTEND Family Medicine
DX: N28.89 Other specified disorders of kidney and ureter (principal); K80.20 Calculus of gallbladder without cholecystitis without obstruction; N28.1 Cyst of kidney, acquired; I25.10 Atherosclerotic heart disease of native coronary artery without angina pectoris
CPT/HCPCS: 74170; 82565; Q9967

== ENCOUNTER 2021-11-11 10:06 | Outpatient (CLI) | payer MEDICARE | END 2021-11-11 10:07 | disposition home or self-care (01) | LOC: BICMAMMO 10:06 | PROVIDERS: ATTEND Family Medicine | DX: Z12.31 Encounter for screening mammogram for malignant neoplasm of breast (principal); Z98.890 Other specified postprocedural states | CPT/HCPCS: 77063; 77067 ==

== ENCOUNTER 2022-04-04 12:02 | Outpatient (CLI) | payer MEDICARE | END 2022-04-04 12:03 | disposition home or self-care (01) | LOC: BICRAD 12:02 | PROVIDERS: ATTEND Family Medicine | DX: R05.9 Cough, unspecified (principal) | CPT/HCPCS: 71046 ==

== ENCOUNTER 2022-12-07 09:34 | Outpatient (CLI) | payer MEDICARE | END 2022-12-07 09:35 | disposition home or self-care (01) | LOC: BICMAMMO 09:34 | PROVIDERS: ATTEND Family Medicine | DX: Z12.31 Encounter for screening mammogram for malignant neoplasm of breast (principal); Z98.82 Breast implant status | CPT/HCPCS: 77063; 77067 ==

== ENCOUNTER 2023-09-09 09:10 | Emergency (ER) | payer MEDICARE ==
[2023-09-09] MEDS ORDERED: Dexamethasone 10 MG/ML VIAL ONE (10:05)
[2023-09-09] MEDS ORDERED: Clindamycin/D5W 300 MG in Premix 1 BAG IVPB SCH (10:15)
[2023-09-09 11:20] LABS: #Monocytes 0.6 thou/uL (0.11-0.59); #Neutrophils 8.7 thou/uL (1.40-6.50); %Basophils 0.2 % (0.0-1.0); %Lymphocytes 7.9 % (21.0-51.0); %Monocytes 5.5 % (0.0-10.0); %Neutrophils 86.1 % (42.0-75.0); Hemoglobin 14.2 g/dL (12.0-16.0); Mean Corpuscular Volume 87.8 fl (78.0-98.0); Platelet Count 124 10x3/uL (130-400); RBC Distribution Width 13.5 % (11.5-14.5); White Blood Cell (WBC) Count 10.2 10x3/uL (4.8-10.8)
[2023-09-09 11:42] LABS: ALT (SGPT) 10 U/L (8-55); AST (SGOT) 12 U/L (5-34); Albumin 3.8 g/dL (3.4-4.8); Alkaline Phosphatase 83 U/L (40-110); Anion Gap 14 mmol/L (10-20); BUN (Urea Nitrogen) 12 mg/dL (9.8-20.1); Bilirubin, Total 1.1 mg/dL (0.2-1.2); Calc. Creatinine Clearance 0 mL/min (70-130); Calcium 9.8 mg/dL (7.8-10.44); Carbon Dioxide 27 mmol/L (23-31); Chloride 104 mmol/L (98-107); Estimated GFR 65; Globulin 2.9 g/dL (2.4-3.5); Glucose 182 mg/dL (83-110); Potassium 3.9 mmol/L (3.5-5.1); Protein, Total 6.7 g/dL (5.8-8.1); Sodium 141 mmol/L (136-145)
[2023-09-09] MEDS ORDERED: Iopamidol-370 76% 500 ML MDV (1 ML CHARGE) ONE (11:57)
== END 2023-09-09 14:48 | disposition home or self-care (01) ==
LOC: ERS 09:10
DX: K04.7 Periapical abscess without sinus (principal); K02.9 Dental caries, unspecified; E11.9 Type 2 diabetes mellitus without complications; E03.9 Hypothyroidism, unspecified; E78.5 Hyperlipidemia, unspecified; I10 Essential (primary) hypertension; Z79.899 Other long term (current) drug therapy; Z79.82 Long term (current) use of aspirin; Z79.84 Long term (current) use of oral hypoglycemic drugs; Z79.4 Long term (current) use of insulin
CPT/HCPCS: 36415; 70487; 80053; 85025; 96365; J1100; J3490; Q9967

== ENCOUNTER 2024-02-15 09:15 | Day surgery (SDC) | payer MEDICARE ==
[2024-02-15] MEDS ORDERED: Lidocaine 1% PF 5 ML VIAL ONE (10:32)
[2024-02-15] MEDS ORDERED: PROPOFOL 40 ML ONE (10:33)
[2024-02-15] MEDS ORDERED: PROPOFOL 20 ML ONE (10:55)
== END 2024-02-15 12:00 | disposition home or self-care (01) ==
LOC: SDC 09:15
PROVIDERS: ATTEND Internal Medicine Gastroenterology
PROC: 0DDN8ZX Extraction of Sigmoid Colon, Via Natural or Artificial Opening Endoscopic, Diagnostic (ICD-10-PCS; principal; 2024-02-15)
DX: Z12.11 Encounter for screening for malignant neoplasm of colon (principal); R19.5 Other fecal abnormalities; K63.5 Polyp of colon; K57.30 Diverticulosis of large intestine without perforation or abscess without bleeding; K64.9 Unspecified hemorrhoids; E11.9 Type 2 diabetes mellitus without complications; I10 Essential (primary) hypertension; E78.5 Hyperlipidemia, unspecified; E03.9 Hypothyroidism, unspecified; E66.9 Obesity, unspecified; Z90.89 Acquired absence of other organs; Z90.710 Acquired absence of both cervix and uterus
CPT/HCPCS: 88305; J2704